=== PATIENT | female | born 1950 | race Caucasian/White ===

== ENCOUNTER → 2023-11-05 08:37 | Outpatient (REF) | payer MEDICARE, SELFPAY ==
[2023-11-05 09:26] LABS: % Basophils 0.9 % (0-2); % Eosinophils 2.6 % (0-6); % Immature Granulocytes 0.4 % (0-0.5); % Monocytes 9.3 % (1.7-9.3); % Neutrophils 41.8 % (42.2-75.2); Absolute Basophils 0.1 10^3/uL (0-0.2); Absolute Eosinophils 0.2 10^3/uL (0-0.7); Absolute Lymphocytes 2.6 10^3/uL (1.2-3.4); Absolute Monocytes 0.5 10^3/uL (0.1-0.6); Absolute Neutrophils 2.4 10^3/uL (1.4-6.5); Hematocrit 35.6 % (37.0-47.0); Mean Corp Hgb Conc. 33.7 g/dL (33.0-37.0); Mean Corpuscular Hgb 32.8 pg (27.0-31.0); Mean Corpuscular Volume 97.3 fL (81.0-99.0); Mean Platelet Volume 10.3 fL (7.4-10.4); Nucleated Red Blood Cells % 0 %; Platelet Count 170 10^3/uL (130-400); Red Blood Cell Count 3.66 10^6/uL (4.20-5.40); Red Cell Dist. Width 12.6 % (11.5-14.5); White Blood Cell Count 5.7 10^3/uL (4.8-10.8)
[2023-11-05 13:03] LABS: ALT (SGPT) 21 U/L (0-35); AST (SGOT) 28 U/L (14-36); Albumin 4.4 g/dl (3.5-5.0); Alkaline Phosphatase 109 U/L (38-126); Blood Urea Nitrogen 21 mg/dl (7-17); Calcium 9.4 mg/dl (8.4-10.2); Carbon Dioxide 29 mmol/L (22-30); Chloride 106 mmol/L (98-107); Glucose 79 mg/dl (70-99); Potassium 4.6 mmol/L (3.5-5.1); Sodium 140 mmol/L (135-145); Total Bilirubin 0.5 mg/dl (0.2-1.3); Total Protein 6.8 g/dl (6.3-8.2); eGFR > 60.00
== END ==
LOC: REG 08:37
PROVIDERS: ATTENDING PHYSICIAN Orthopaedic Surgery
DX: Z01.818 Encounter for other preprocedural examination (principal)
CPT/HCPCS: 36415; 80053; 85025

== ENCOUNTER 2023-11-27 16:45 | Observation (INO) | payer MEDICARE, SELFPAY ==
[2023-11-27 10:48] VITALS: BMI 28.3
[2023-11-27 10:50] VITALS: BP 126/68
[2023-11-27 11:25] LABS: % Basophils 0.6 % (0-2); % Eosinophils 1.1 % (0-6); % Immature Granulocytes 0.5 % (0-0.5); % Lymphocytes 24.9 % (20.5-51.1); % Monocytes 6.2 % (1.7-9.3); % Neutrophils 66.7 % (42.2-75.2); Absolute Basophils 0.1 10^3/uL (0-0.2); Absolute Eosinophils 0.1 10^3/uL (0-0.7); Absolute Immature Granulocytes 0.1 10^3/uL (0-0.05); Absolute Lymphocytes 2.5 10^3/uL (1.2-3.4); Absolute Monocytes 0.6 10^3/uL (0.1-0.6); Absolute Neutrophils 6.7 10^3/uL (1.4-6.5); Hematocrit 35.2 % (37.0-47.0); Hemoglobin 12.1 g/dL (12.0-16.0); Mean Corp Hgb Conc. 34.4 g/dL (33.0-37.0); Mean Corpuscular Hgb 32.2 pg (27.0-31.0); Mean Corpuscular Volume 93.6 fL (81.0-99.0); Mean Platelet Volume 9.9 fL (7.4-10.4); Nucleated Red Blood Cells % 0 %; Platelet Count 201 10^3/uL (130-400); Red Blood Cell Count 3.76 10^6/uL (4.20-5.40); Red Cell Dist. Width 12.4 % (11.5-14.5); White Blood Cell Count 10.1 10^3/uL (4.8-10.8)
[2023-11-27 11:26] LABS: ALT (SGPT) 22 U/L (0-35); AST (SGOT) 29 U/L (14-36); Albumin 4.1 g/dl (3.5-5.0); Alkaline Phosphatase 129 U/L (38-126); Blood Urea Nitrogen 22 mg/dl (7-17); Calcium 9.3 mg/dl (8.4-10.2); Carbon Dioxide 28 mmol/L (22-30); Chloride 104 mmol/L (98-107); Estimated Creatinine Clearance 47 ml/min; Glucose 105 mg/dl (70-99); Potassium 4.1 mmol/L (3.5-5.1); Sodium 140 mmol/L (135-145); Total Bilirubin 0.5 mg/dl (0.2-1.3); Total Protein 6.6 g/dl (6.3-8.2); eGFR 59.86
[2023-11-27 11:38] LABS: Troponin I < 0.012 ng/ml
[2023-11-27 12:05] VITALS: BP 104/74
[2023-11-27] MEDS: PROTONIX IV 80 MG IV (12:28)
--- NOTE | 2023-11-27 13:10 | HPS.HSE ---
Family Physician
-
Family Physician: Jorge Cowan
Chief Complaint
-
near syncope
History of Present Illness
73 female sick sinus syndrome status post pacemaker placement hypertension hyperlipidemia history of CVA/TIAs on aspirin 325 mg daily GERD IBS presents for evaluation near-syncope. First day returned to work after November 14 hammertoe surgery left foot
with podiatry, patient reports brief episode of diaphoresis lightheadedness near fainting while working causing her to sit down. Symptoms eventually resolved at rest denies headache chest pain palpitations fevers chills nausea vomiting diarrhea.
Reports for the past week or so she has had had poor appetite abdomen discomfort bloating belching and recently dark stools. First episode noted day prior to presentation. Most recent bowel movement morning was noted to be very dark 'black.'
Denies mati blood. Following surgery patient had been ibuprofen as needed for pain (unable to tolerate most opiate pain medications). Patient also endorses taking Pepto-Bismol for GERD- patient noted symptoms have been more frequent for the past
week. Vital signs stable no significant anemia labs unremarkable. CTA chest abdomen pelvis noted no aortic dissection embolism. Mild concentric mural wall thickening's of the colon extending from splenic flexure to sigmoid colon was noted
concerning for possible infectious versus inflammatory etiology.
Medical History
Past Medical History
Past Medical History: Reports Other (As above)
Past Surgical History: Reports Other (As above)
Social History
Tobacco: Non-smoker
Alcohol: Occasional
Drug: None
Personal: Other (Engaged)
Living: Other ([facility])
Employment: Employed
Family History
Family History: Not pertinent (Reviewed)
Allergies / Home Medications
Allergies reflects when Allergies were last updated in [facility] ([email or web address]).
Home Medications with original date entered in [facility] ([email or web address])
Allergy/Medication List:
Allergies
Allergy/AdvReac Type Severity Reaction Status Date / Time
cephalexin [From Keflex] Allergy Rash Verified 07/30/23 10:08
latex Allergy Rash Verified 07/30/23 10:08
metronidazole [From Flagyl] Allergy Rash Verified 07/30/23 10:08
oxycodone [From Percocet] Allergy Nausea / Verified 07/30/23 10:08
Vomiting
Sulfa (Sulfonamide Allergy Nausea / Verified 07/17/23 15:30
Antibiotics) Vomiting/RASH
Home Medications
omeprazole 40 mg capsule,delayed release 40 mg PO DAILY gerd 09/24/19
metoprolol succinate 25 mg tablet,extended release 24 hr 25 mg PO DAILY Arrhythmia 09/08/20
loratadine 10 mg tablet 10 mg PO DAILY allergies 11/23/20
atorvastatin 80 mg tablet 80 mg PO HS High cholesterol 01/25/21
lisinopril 40 mg tablet 40 mg PO BID Blood Pressure 02/12/23
multivitamin 1 tab PO DAILY Supplement 02/12/23
sertraline 50 mg tablet 50 mg PO DAILY Mental Health 07/17/23
rimegepant 75 mg disintegrating tablet (Nurtec ODT) 75 mg PO DAILYPRN PRN MIGRANES 07/30/23
aspirin 325 mg tablet 325 mg PO DAILY Blood Clot Prevention/Tx 11/27/23
bismuth subsalicylate 262 mg/15 mL oral suspension (Pepto-Bismol) 524 mg PO BIDPRN PRN GERD 11/27/23
ibuprofen 200 mg tablet (Advil) 400 mg PO BIDPRN PRN MILD PAIN 11/27/23
Review of Systems
-
A 12 point ROS was completed and negative except as noted: Yes
Constitutional: Reports Sleep Disturbance (As below)
Physical Exam
Vital Signs
Vital Signs
Temp Pulse Resp BP Pulse Ox
98.1 F 62 15 126/68 100
11/27/23 10:48 11/27/23 12:00 11/27/23 12:00 11/27/23 10:50 11/27/23 12:00
Physical Exam
General: Other (As below)
Laboratory Results
-
11/27/23 11:04
11/27/23 11:04
Laboratory Results
Total Bilirubin 0.5 mg/dl (0.2-1.3) 11/27/23 11:04
AST 29 U/L (14-36) 11/27/23 11:04
ALT 22 U/L (0-35) 11/27/23 11:04
Alkaline Phosphatase 129 U/L (38-126) H 11/27/23 11:04
Troponin I < 0.012 ng/ml 11/27/23 11:04
Impression/Plan
-
ROS
General: Denies fever chills night sweats unexpected weight loss
Neuro: Denies seizure shaking loss of consciousness dizziness vertigo
Psych: denies depression hallucinations confusion manic episodes
Endocrine: Denies polyuria polydipsia polyphagia heat/cold intolerance
HEENT: Denies blindness visual disturbances epistaxis
Pulmonary: denies coughing hemoptysis sneezing sob dyspnea on exertion
Cardiovascular: denies chest pain palpitations leg swelling
Hematology: denies signs symptoms of anemia easy bruising/bleeding
Gastrointestinal: Reports poor appetite for the past week abdomen discomfort bloating gas belching dark stools
Genito-Urinary: denies retention incontinence dysuria
Musculoskeletal: denies joint pain weakness
Dermatology: denies rash laceration bruising
Physical Exam
General: No pallor, cyanosis, or jaundice.
HEENT: Throat clear. PERRLA Normocephalic atraumatic
NECK: Supple. No JVD Carotid Bruits
RESPIRATORY: Lungs clear to auscultation. No crackles wheezes stridor
CVS: S1, S2 normal. RRR. No murmur, rub or gallop.
ABDOMEN: Soft, non-tender. No distension. BS+/normal.
EXTREMITIES: No peripheral cyanosis or edema.
TEENAGE BABYSITTER: AOx3
IMPRESSION:
73F sick sinus syndrome status post pacemaker placement hypertension hyperlipidemia history of CVA/TIAs on aspirin 325 mg daily GERD IBS/ulcerative colitis presents for evaluation near-syncope. First day returned to work after November 14 hammertoe
surgery left foot with podiatry, patient reports brief episode of diaphoresis lightheadedness near fainting while working causing her to sit down. Symptoms eventually resolved at rest denies headache chest pain palpitations fevers chills nausea
vomiting diarrhea. Reports for the past week or so she has had had poor appetite abdomen discomfort bloating belching and recently dark stools. First episode noted day prior to presentation. Most recent bowel movement morning was noted to be very
dark 'black.' Denies mati blood. Following surgery patient had been ibuprofen as needed for pain (unable to tolerate most opiate pain medications). Patient also endorses taking Pepto-Bismol for GERD- patient noted symptoms have been more
frequent for the past week. Vital signs stable no significant anemia labs unremarkable. CTA chest abdomen pelvis noted no aortic dissection embolism. Mild concentric mural wall thickening's of the colon extending from splenic flexure to sigmoid
colon was noted concerning for possible infectious versus inflammatory etiology.
PLAN:
#Near syncope likely vasovagal
Telemetry observation
Fall precautions
#Suspected NSAID induced peptic ulcer disease
#Possible upper GI bleed
#GERD IBS
No significant anemia noted at this time
Dark stools may be due to Pepto-Bismol use
Monitor H&H, transfuse goal hemoglobin greater than 8 or if patient develops symptomatic anemia
Hold further NSAID use except for home 325 mg daily aspirin due to history CVA/TIAs
Possible colon Inflammation noted on CT doubt infectious afebrile no leukocytosis, monitor off antibiotics at this time
IV Protonix twice daily
GI eval
#Hypertension
Continue home lisinopril metoprolol with holding parameters
#Seasonal allergies
Continue home loratadine
#Anxiety/depression
Continue home sertraline
#History of migraines
Continue home as needed Nurtec
DVT prophylaxis SCDs
GI prophylaxis Protonix
Meds reconciled resume as appropriate
Full code
I spent a total of 80 minutes with the patient or on the floor. More than 50% of this time involved counseling and coordination of care.
[2023-11-27 13:13] VITALS: BP 125/74
[2023-11-27 17:45] VITALS: BP 125/62; BMI 27.3
[2023-11-27 17:58] LABS: Hematocrit 34.8 % (37.0-47.0); Hemoglobin 11.8 g/dL (12.0-16.0)
[2023-11-27 19:57] VITALS: BP 104/62
[2023-11-27] MEDS: ZESTRIL PO (20:32)
[2023-11-27] MEDS: LIPITOR 80 MG PO (20:43)
[2023-11-27] MEDS: PROTONIX IV 40 MG IV (20:44)
[2023-11-27] MEDS: NSS (PRESERVATIVE FREE) 10 ML IV (20:44)
[2023-11-27 23:05] VITALS: BP 116/66
[2023-11-28] VITALS (11 sets, daily range): BP systolic 12–149; BP diastolic 54–80; PULSE 63–70; O2SAT 98; BMI 27.7
--- NOTE | 2023-11-28 06:44 | CON.GI ---
Addendum entered and electronically signed by Carlee Wang DO 11/28/23 09:08:
I saw and examined the patient.
The COMPUTER SYSTEMS SECURITY ANALYST or PA's note was reviewed and I agree with the note.
Comment: Briefly, Isaura is a 73 y.o. female with hx SSS s/p PPM, Hx CVA on ASA 325 mg, GERD, HTN, HLD, Hx colon polyps, hx of prior GI bleed, hx diverticulitis , who presents with weakness, lightheadedness and reports of dark tarry stool over the
last few weeks. She recently had hammertoe surgery on 11/14, reports daily NSAID use, also concurrent pepto bismol use. She is on daily omeprazole for GERD. Hemoglobin stable, however, elevated BUN. She is hemodynamically stable. CTA performed on
admission was negative for active GI Bleed or dissection, but does note inflammation in the sigmoid colon to splenic flecture. She does not have any lower abd. pain, hematochezia or complaints of diarrhea. Last colonoscopy 04/[address] Carter no
colitis, sigmoid nathalie diverticular inflammation at one location, diverticulosis ascending and sigmoid and nathalie diverticular inflammation. 2 polyps removed bx TA no colitis.
Unclear if dark stool is 2/2 pepto use, but given elevated BUN in setting of excessive NSAID use, will plan to further evaluate with EGD today. Not sure what to make of her colitis seen on imaging, without any lower GI symptoms. Distribution is
suggestive of ischemic picture vs. infectious vs. inflammatory. Would recommend repeat imaging in 4-6 weeks as an outpatient vs. nonurgent colonoscopy as outpatient.
Original Note:
Consultation
-
Date/Time Consultation Requested: 11/27/23 1730
Date/Time Consultation Performed: 11/28/23 0800
Requesting Provider: Kate Reagan MD
Performing Provider: NILE Clark
Reason for Consultation: GI bleed
Medical History
Chief Complaint / HPI
History of Present Illness:
Pt is a 73yo with hx sick sinus syndrome with pacer, prior atrial tach,TIA/CVA on daily ASA 325mg, mild MR, basal cell ca, GERD with chronic Omeprazole use, HTN, Hypercholesterolemia, IBS, colon polyps, prior GI bleed 2019, diverticulitis,flex bx
with ischemia at that time, prior overdose in 2022 with depression issues with onset of near syncope. Pt with recent hammertoe surgery 11/14 and noted feeling of diaphoresis and lightheadedness on return to work. Pt admits to recent poor
appetite, bloating, belching and black stools with pepto use. On admission noted with hbg 12.1 with BUN 22 and prior BUN of 21 on 11/05/23. Pt does admit to recent NSAID use post foot surgery taking Ibuprofen 400mg BID alternating with Tylenol
until several days ago. CTA on admission with no signs of dissection. Wall thickening of colon from splenic flexure to sigmoid infectious vs inflammatory etiology considered with small amount of free fluid. small HH, mild dilation of CBD up to 1
cm, diverticulosis and thinning and scarring of b/l kidney's.
Pt also admits to nausea with vomiting bile at some point. She admits to upper abdominal pain with symptoms but denies any lower abdominal pain. Stool normally regular but did have black formed stool Blank then tarry stools yesterday AM.
Hx EGD 7-8 years ago did not recall details. Last colonoscopy 04/[address] Carter no colitis, sigmoid nathalie diverticular inflammation at one location, diverticulosis ascending and sigmoid and nathalie diverticular inflammation. 2 polyps removed bx TA
no colitis.
Past Medical History
Past Medical History: Arrhythmias (sick sinus syndrome, atrial tach), Cancer (basal cell CA), CVA (TIA), GERD, HTN, Hypercholesterolemia, Valvular Disease (mild MR) and Other (IBS, colon polyp, extensive diverticulosis, rectal bleeding 2019 with
noted diverticulitis vs colitis with flex bx ischemia at that time, vertigo, migrains, osteo, chronic fatigue, thyroid cyst, righ ovarian mass with prior oophorectomy, suicidal ideation and attempted opioid/Tylenol overdose 08/2022)
Past Surgical History: Cardiac (pacer), Gynecological (b/l oophorectomy) and Other (cataract sx)
Social History
Tobacco: Non-Smoker
Alcohol: Occasional (1-2 drinks per month )
Drug: None
Personal: Other (casandra)
Living: Other ([place])
Employment: Employed
Family History
Family History: Other (father with lung CA with mets to colon)
Allergies / Home Medications
Allergy/AdvReac Type Severity Reaction Status Date / Time
cephalexin [From Keflex] Allergy Rash Verified 07/30/23 10:08
latex Allergy Rash Verified 07/30/23 10:08
metronidazole [From Flagyl] Allergy Rash Verified 07/30/23 10:08
oxycodone [From Percocet] Allergy Nausea / Verified 07/30/23 10:08
Vomiting
Sulfa (Sulfonamide Allergy Nausea / Verified 07/17/23 15:30
Antibiotics) Vomiting/RASH
�Medication �Instructions �Recorded
omeprazole 40 mg capsule,delayed 40 mg PO DAILY gerd 09/24/19
release
metoprolol succinate 25 mg 25 mg PO DAILY Arrhythmia 09/08/20
tablet,extended release 24 hr
loratadine 10 mg tablet 10 mg PO DAILY allergies 11/23/20
atorvastatin 80 mg tablet 80 mg PO HS High cholesterol 01/25/21
lisinopril 40 mg tablet 40 mg PO BID Blood Pressure 02/12/23
multivitamin 1 tab PO DAILY Supplement 02/12/23
sertraline 50 mg tablet 50 mg PO DAILY Mental Health 07/17/23
rimegepant 75 mg disintegrating 75 mg PO DAILYPRN PRN MIGRANES 07/30/23
tablet (Nurtec ODT)
aspirin 325 mg tablet 325 mg PO DAILY Blood Clot 11/27/23
Prevention/Tx
bismuth subsalicylate 262 mg/15 mL 524 mg PO BIDPRN PRN GERD 11/27/23
oral suspension (Pepto-Bismol)
ibuprofen 200 mg tablet (Advil) 400 mg PO BIDPRN PRN MILD PAIN 11/27/23
Review of Systems
-
History Source: Patient
Constitutional: Reports Other (sweats )
EENT: Reports No Symptoms
Cardiac: Reports Other (near syncope)
Abdomen/GI: Reports Abdominal Pain, Nausea, Vomiting (bilious material ) and Black Stools (formed then tarry stools)
: Reports No Symptoms
Musculoskeletal: Reports Other (recent foot pain with surgery )
Skin: Reports No Symptoms
Neurological: Reports Dizzy
Endocrine: Reports No Symptoms
Hematologic/Lymphatic: Reports Bleeding (black stools)
Vital Signs
Temp Pulse Resp BP Pulse Ox
97.9 F 74 18 93/54 98
11/28/23 03:33 11/28/23 03:33 11/28/23 03:33 11/28/23 03:33 11/28/23 03:33
Physical Exam
Exam
General: Well Developed, Well Nourished and No Apparent Distress
Results
WBC 10.1 10^3/uL (4.8-10.8) 11/27/23 11:04
Hgb 11.8 g/dL (12.0-16.0) L 11/27/23 17:54
Hct 34.8 % (37.0-47.0) L 11/27/23 17:54
MCV 93.6 fL (81.0-99.0) 11/27/23 11:04
Plt Count 201 10^3/uL (130-400) 11/27/23 11:04
Absolute Neuts (auto) 6.7 10^3/uL (1.4-6.5) H 11/27/23 11:04
Sodium 140 mmol/L (135-145) 11/27/23 11:04
Potassium 4.1 mmol/L (3.5-5.1) 11/27/23 11:04
Chloride 104 mmol/L (98-107) 11/27/23 11:04
Carbon Dioxide 28 mmol/L (22-30) 11/27/23 11:04
BUN 22 mg/dl (7-17) H 11/27/23 11:04
Creatinine 1.0 mg/dL (0.6-1.0) 11/27/23 11:04
Calcium 9.3 mg/dl (8.4-10.2) 11/27/23 11:04
Total Bilirubin 0.5 mg/dl (0.2-1.3) 11/27/23 11:04
AST 29 U/L (14-36) 11/27/23 11:04
ALT 22 U/L (0-35) 11/27/23 11:04
Alkaline Phosphatase 129 U/L (38-126) H 11/27/23 11:04
Diagnostic Image Results:
11/27/23 CT Chest/abd/pelvis Angio W/wo
1. No signs of aortic dissection. No acute vascular abnormality is identified. No central or segmental pulmonary embolus.
2. Mild concentric mural wall thickening of the colon extending from the splenic flexure through the sigmoid colon. Infectious and inflammatory etiologies are the most likely differential considerations. Very small amount of associated free fluid
within the pelvis. There are no signs of significant mesenteric atherosclerotic changes.
3. Very small hiatal hernia.
4. Mild dilation common bile duct, indeterminate etiology. No abnormal focal pancreatic lesions identified.
5. Mild cortical thinning and minimal scarring bilateral kidneys.
6. Colonic diverticulosis.
04/2020 CT Abd/pelvis W Iv Cont
Persistent mild diverticulitis of the distal descending colon, improved since the previous exam 3 weeks ago. There is mild distal descending colon wall thickening in this region. Resolution of the previous free fluid. No abscess. Overall improved
appearance.
There is moderate stool in the transverse and descending colon, consistent with constipation.
Remainder of the exam is unchanged. Unremarkable.
Prior GI Procedures:
EGD:
flex: 02/2020 [facility] - Blood in the entire examined colon.
- The rectum and sigmoid colon are normal.
- Hemorrhagic, inflamed and ulcerated mucosa in the
descending colon (looks like ischemia) Biopsied.
- Stopped here, did not view past the descending colon.
bx finding with ischemia differential c-diff
Colonoscopy: 05/24/2020 [facility] No colitis other than a sigmoid nathalie-diverticular
inflammation at one location. No strictures or colitis
otherwise seen.
- Diverticulosis in the ascending colon and in the
left colon.
- Diverticulosis in the sigmoid colon.
Nathalie-diverticular erythema was seen. Biopsied.
- Two small polyps in the ascending colon and in the
cecum, removed with a jumbo cold forceps. Resected and
retrieved.
- The examined portion of the ileum was normal.
bx TA polyps, no colitis
Assessment / Plan
-
Pt is a 73yo with hx sick sinus syndrome with pacer, prior atrial tach,TIA/CVA on daily ASA 325mg, mild MR, basal cell ca, GERD with chronic Omeprazole use, HTN, Hypercholesterolemia, IBS, colon polyps, prior GI bleed 2019, diverticulitis,flex bx
with ischemia at that time, prior overdose in 2022 with depression issues with onset of near syncope. Pt with recent hammertoe surgery 11/14 and noted feeling of diaphoresis and lightheadedness on return to work. Pt admits to recent poor
appetite, bloating, belching and black stools with pepto use. On admission noted with hbg 12.1 with BUN 22 and prior BUN of 21 on 11/05/23. Pt does admit to recent NSAID use post foot surgery taking Ibuprofen 400mg BID alternating with Tylenol
until several days ago. CTA on admission with no signs of dissection. Wall thickening of colon from splenic flexure to sigmoid infectious vs inflammatory etiology considered with small amount of free fluid. small HH, mild dilation of CBD up to 1
cm, diverticulosis and thinning and scarring of b/l kidney's.
-near syncope
-black stools - pepto vs concern for GI bleed
-CT with colonic thickening splenic flexure to sigmoid
-mild anemia
-TIA/CVA on daily ASA 325mg
-chronic alk phos elevated
other medical problems:
-GI bleed 2019 with noted diverticulitis and ischemia on bx at that time
-SSS with pacer
-atrial tach
-mild MR
-basal cell CA
-GERD
-HTN
-hypercholesterolemia
-IBS
-colon polyps
-prior overdose/depression stable at this time
PLAN:
etiology of symptoms related to upper GI bleed with recent surgery and increased NSAID use -- PUD vs pepto use vs other
trend hbg
plan for EGD today to rule out PUD
PPI BID
NPO
NSAID avoidance other than cont ASA as needed with hx CVA
cont PPI
CT as noted with colonic thickening-- similar CT finding in past with prior stable colon no current lower symptoms less likely current colitis or diverticular process
-
-
Thank you for consultation and allowing me to participate in the patient's care. Please call the manager contracting GI physician during the after hours with any questions or concerns.
--- NOTE | 2023-11-28 07:16 | W.PN.HOSP.TC ---
Today's Communication/Plan
-
reduced dose lisinopril.
antihypertensives with holding parameters
diet as per GI
monitor H&H
likely discharge tomorrow if remains stable/continues to improve
Assessment / Plan
Assessment / Plan
Physical Exam
General: No pallor, cyanosis, or jaundice.
HEENT: Throat clear. PERRLA Normocephalic atraumatic
NECK: Supple. No JVD Carotid Bruits
RESPIRATORY: Lungs clear to auscultation. No crackles wheezes stridor
CVS: S1, S2 normal. RRR. No murmur, rub or gallop.
ABDOMEN: Soft, non-tender. No distension. BS+/normal.
EXTREMITIES: No peripheral cyanosis or edema.
WARD MAID: AOx3
IMPRESSION:
73F sick sinus syndrome status post pacemaker placement hypertension hyperlipidemia history of CVA/TIAs on aspirin 325 mg daily GERD IBS/ulcerative colitis presents for evaluation near-syncope. First day returned to work after November 14 hammpablitoe
surgery left foot with podiatry, patient reports brief episode of diaphoresis lightheadedness near fainting while working causing her to sit down. Symptoms eventually resolved at rest denies headache chest pain palpitations fevers chills nausea
vomiting diarrhea. Reports for the past week or so she has had had poor appetite abdomen discomfort bloating belching and recently dark stools. First episode noted day prior to presentation. Most recent bowel movement morning was noted to be very
dark 'black.' Denies mati blood. Following surgery patient had been ibuprofen as needed for pain (unable to tolerate most opiate pain medications). Patient also endorses taking Pepto-Bismol for GERD- patient noted symptoms have been more
frequent for the past week. Vital signs stable no significant anemia labs unremarkable. CTA chest abdomen pelvis noted no aortic dissection embolism. Mild concentric mural wall thickening's of the colon extending from splenic flexure to sigmoid
colon was noted concerning for possible infectious versus inflammatory etiology.
PLAN:
#Near syncope likely vasovagal
Telemetry observation
Fall precautions
PT/OT appreciated no needs
#Suspected NSAID induced peptic ulcer disease
#Possible upper GI bleed
#GERD IBS
No significant anemia noted at this time
Dark stools may be due to Pepto-Bismol use
Monitor H&H, transfuse goal hemoglobin greater than 8 or if patient develops symptomatic anemia
Hold further NSAID use except for home 325 mg daily aspirin due to history CVA/TIAs
Possible colon Inflammation noted on CT doubt infectious afebrile no leukocytosis, monitor off antibiotics at this time
IV Protonix twice daily
GI eval appreciated
EGD 11/27
-mild erosive gastritis, duodenitis
-outpt follow up recommended, avoid NSAIDs, PPI once daily outpt.
#Hypertension
Continue home lisinopril metoprolol with holding parameters
Lisinopril dose reduced from 40 mg to 20 mg BID d/t relative hypotension potentially causing lightheadedness
#Seasonal allergies
Continue home loratadine
#Anxiety/depression
Continue home sertraline
#History of migraines
Continue home as needed Nurtec
DVT prophylaxis SCDs
GI prophylaxis Protonix
Full code
I spent a total of 59 minutes with the patient or on the floor. More than 50% of this time involved counseling and coordination of care.
Anticipated Discharge: Within 24 hours
Subjective/Interval History
-
Date of Service: November 28, 2023
Seen and examined at bedside in no acute distress resting comfortably in bed. Reports overall feeling well at rest. No bowel movements since admission. Denies new acute issues at this time.
Objective Data
-
Labs:
Laboratory Results
11/28/23
06:00
WBC Pending
Hgb Pending
Hct Pending
Plt Count Pending
Sodium Pending
Potassium Pending
Chloride Pending
Carbon Dioxide Pending
BUN Pending
Creatinine Pending
Glucose Pending
Calcium Pending
Vital Signs:
Vital Signs
Temp Pulse Resp BP Pulse Ox
97.9 F 74 18 93/54 98
11/28/23 03:33 11/28/23 03:33 11/28/23 03:33 11/28/23 03:33 11/28/23 03:33
I&O
11/27/23 11/28/23 11/29/23
06:59 06:59 06:59
Intake Total 120 / 120
Balance 120 / 120
[2023-11-28 07:50] LABS: Hematocrit 34.2 % (37.0-47.0); Hemoglobin 11.5 g/dL (12.0-16.0); Mean Corp Hgb Conc. 33.6 g/dL (33.0-37.0); Mean Corpuscular Hgb 32.2 pg (27.0-31.0); Mean Corpuscular Volume 95.8 fL (81.0-99.0); Mean Platelet Volume 10.2 fL (7.4-10.4); Platelet Count 180 10^3/uL (130-400); Red Blood Cell Count 3.57 10^6/uL (4.20-5.40); Red Cell Dist. Width 12.7 % (11.5-14.5); White Blood Cell Count 6.2 10^3/uL (4.8-10.8)
[2023-11-28] MEDS: ZOLOFT 50 MG PO (08:08)
[2023-11-28] MEDS: THERAGRAN 1 TABLET PO (08:08)
[2023-11-28] MEDS: ZESTRIL 40 MG PO (08:08)
[2023-11-28] MEDS: TOPROL XL 25 MG PO (08:08)
[2023-11-28] MEDS: CLARITIN 10 MG PO (08:08)
[2023-11-28] MEDS: ASPIRIN 325 MG PO (08:08)
[2023-11-28] MEDS: PROTONIX IV 40 MG IV ×2 (08:09→19:54)
[2023-11-28] MEDS: NSS (PRESERVATIVE FREE) 10 ML IV ×2 (08:09→19:54)
[2023-11-28 08:37] LABS: Blood Urea Nitrogen 20 mg/dl (7-17); Calcium 9.2 mg/dl (8.4-10.2); Carbon Dioxide 27 mmol/L (22-30); Chloride 107 mmol/L (98-107); Estimated Creatinine Clearance 51 ml/min; Glucose 92 mg/dl (70-99); Magnesium 2.1 mg/dl (1.6-2.3); Potassium 4.5 mmol/L (3.5-5.1); Sodium 141 mmol/L (135-145); eGFR > 60.00
--- NOTE | 2023-11-28 11:16 | CM ---
Patient seen bedside, initial assessment completed. Patient resides with her fiance who is a physical therapist in a two story home, one small step to enter. Patient denies DME, reports VN and Acute Rehab in the past (2016/2017) after strokes,
unsure name of facility. Patient confirms PCP Jorge Cowan, pharmacy [facility], denies prescription coverage. WEL[employer] form reviewed, signed, placed in chart, patient provided with copy. CM will continue to follow for discharge planning needs.
Plan; home no needs anticipated.
--- NOTE | 2023-11-28 12:44 | W.PN.UPDATE ---
Update Note
Progress Note Update
EGD;
mild erosive gastritis, duodenitis
stomach biopsied
plan;
avoid nsaids
regular diet
PPI once a day as outpatient
f/u with Dr. Carter
will sign off call with questions
--- NOTE | 2023-11-28 15:29 | PTOTSP ---
pt currently requires supervision to no assistance to complete simple ADLs, functional transfers, ambulation. pt demonstrates no acute OT needs; will sign off.
[2023-11-28] MEDS: ZESTRIL 20 MG PO (19:55)
[2023-11-28] MEDS: LIPITOR 80 MG PO (21:15)
[2023-11-29 03:00] VITALS: BP 110/64
[2023-11-29 03:44] VITALS: BMI 27.5
[2023-11-29 06:28] LABS: Hemoglobin 10.8 g/dL (12.0-16.0); Mean Corp Hgb Conc. 33.8 g/dL (33.0-37.0); Mean Corpuscular Volume 94.7 fL (81.0-99.0); Mean Platelet Volume 9.9 fL (7.4-10.4); Platelet Count 177 10^3/uL (130-400); Red Blood Cell Count 3.38 10^6/uL (4.20-5.40); Red Cell Dist. Width 12.6 % (11.5-14.5); White Blood Cell Count 8.3 10^3/uL (4.8-10.8)
[2023-11-29 06:53] LABS: Blood Urea Nitrogen 26 mg/dl (7-17); Calcium 9.2 mg/dl (8.4-10.2); Carbon Dioxide 26 mmol/L (22-30); Chloride 106 mmol/L (98-107); Estimated Creatinine Clearance 51 ml/min; Glucose 99 mg/dl (70-99); Phosphorus 4.3 mg/dl (2.5-4.5); Potassium 4.5 mmol/L (3.5-5.1); Sodium 141 mmol/L (135-145); eGFR > 60.00
--- NOTE | 2023-11-29 07:19 | W.PN.HOSP.TC ---
Today's Communication/Plan
-
discharge
Assessment / Plan
Assessment / Plan
Physical Exam
General: No pallor, cyanosis, or jaundice.
HEENT: Throat clear. PERRLA Normocephalic atraumatic
NECK: Supple. No JVD Carotid Bruits
RESPIRATORY: Lungs clear to auscultation. No crackles wheezes stridor
CVS: S1, S2 normal. RRR. No murmur, rub or gallop.
ABDOMEN: Soft, non-tender. No distension. BS+/normal.
EXTREMITIES: No peripheral cyanosis or edema.
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
IMPRESSION:
73F sick sinus syndrome status post pacemaker placement hypertension hyperlipidemia history of CVA/TIAs on aspirin 325 mg daily GERD IBS/ulcerative colitis presents for evaluation near-syncope. First day returned to work after November 14 teresa
surgery left foot with podiatry, patient reports brief episode of diaphoresis lightheadedness near fainting while working causing her to sit down. Symptoms eventually resolved at rest denies headache chest pain palpitations fevers chills nausea
vomiting diarrhea. Reports for the past week or so she has had had poor appetite abdomen discomfort bloating belching and recently dark stools. First episode noted day prior to presentation. Most recent bowel movement morning was noted to be very
dark 'black.' Denies mati blood. Following surgery patient had been ibuprofen as needed for pain (unable to tolerate most opiate pain medications). Patient also endorses taking Pepto-Bismol for GERD- patient noted symptoms have been more
frequent for the past week. Vital signs stable no significant anemia labs unremarkable. CTA chest abdomen pelvis noted no aortic dissection embolism. Mild concentric mural wall thickening's of the colon extending from splenic flexure to sigmoid
colon was noted concerning for possible infectious versus inflammatory etiology.
PLAN:
#Near syncope likely vasovagal
Telemetry observation
Fall precautions
PT/OT appreciated no needs
#Suspected NSAID induced peptic ulcer disease
#Possible upper GI bleed
#GERD IBS
No significant anemia noted at this time
Dark stools may be due to Pepto-Bismol use
Monitor H&H, transfuse goal hemoglobin greater than 8 or if patient develops symptomatic anemia
Hold further NSAID use except for home 325 mg daily aspirin due to history CVA/TIAs
Possible colon Inflammation noted on CT doubt infectious afebrile no leukocytosis, monitor off antibiotics at this time
IV Protonix twice daily
GI eval appreciated
EGD 11/27
-mild erosive gastritis, duodenitis
-outpt follow up recommended, avoid NSAIDs, PPI once daily outpt.
#Hypertension
Continue home lisinopril metoprolol with holding parameters
Lisinopril dose reduced from 40 mg to 20 mg BID d/t relative hypotension potentially causing lightheadedness
blood pressure well controlled, tolerating change in medication well
#Seasonal allergies
Continue home loratadine
#Anxiety/depression
Continue home sertraline
#History of migraines
Continue home as needed Nurtec
DVT prophylaxis SCDs
GI prophylaxis Protonix
Full code
Medically stable for discharge home with outpatient follow up recommendations.
Total Time Preparing Discharge __50 minutes including examination of the patient, summary of the hospital stay, instructions for continuing care to all relevant caregivers; and preparation of discharge records, prescriptions, and referral
forms if necessary.
Anticipated Discharge: Today
Subjective/Interval History
-
Date of Service: November 29, 2023
Seen and examined at bedside in no acute distress resting comfortably in bed. Patient reports overall feeling well. Denies any new acute issues at this time. Eager to go home.
Objective Data
-
Labs:
Laboratory Results
11/29/23
06:03
WBC 8.3
Hgb 10.8 L
Hct 32.0 L
Plt Count 177
Sodium 141
Potassium 4.5
Chloride 106
Carbon Dioxide 26
BUN 26 H
Creatinine 0.9
Glucose 99
Calcium 9.2
Vital Signs:
Vital Signs
Temp Pulse Resp BP Pulse Ox
98.4 F 79 16 110/64 97
11/29/23 03:00 11/29/23 03:00 11/29/23 03:00 11/29/23 03:00 11/29/23 03:00
I&O
11/28/23 11/29/23 11/30/23
06:59 06:59 06:59
Intake Total 120 / 120 960 / 960
Balance 120 / 120 960 / 960
[2023-11-29] MEDS: THERAGRAN 1 TABLET PO (07:53)
[2023-11-29] MEDS: CLARITIN 10 MG PO (07:54)
[2023-11-29] MEDS: TOPROL XL 25 MG PO (07:54)
[2023-11-29] MEDS: NSS (PRESERVATIVE FREE) 10 ML IV (07:56)
[2023-11-29] MEDS: ASPIRIN 325 MG PO (07:56)
[2023-11-29] MEDS: PROTONIX IV 40 MG IV (07:57)
[2023-11-29] MEDS: ZESTRIL 20 MG PO (07:58)
[2023-11-29] MEDS: ZOLOFT 50 MG PO (07:59)
[2023-11-29 08:04] VITALS: BP 115/68
[2023-11-29 08:31] LABS: Total Iron Binding Capacity 230 ug/dl (265-497)
[2023-11-29 09:07] LABS: Folate 14.1 ng/ml (2.76-20); Vitamin B12 325 pg/ml (239-931)
[2023-11-29 10:00] LABS: Hematocrit 32.8 % (37.0-47.0); Hemoglobin 10.9 g/dL (12.0-16.0)
--- NOTE | 2023-11-29 11:05 | CM ---
Patient seen bedside, reports no needs to CM at this time. CM will continue to follow for all discharge planning needs.
Plan; home no needs when stable.
[2023-11-29 11:26] VITALS: BP 114/59
[2023-11-29 13:56] LABS: Iron 76 ug/dl (37-170); Percent Saturation 33 % (20-50)
--- NOTE | 2023-11-29 14:56 | W.DCSUMMARY ---
Discharge Summary
Discharge Data
Date of Admission: 11/27/23
Date of Discharge: 11/29/23
-
Pending Results: Yes
Additional Pending Results:
biopsy results from endoscopy to be followed up with GI
Hospital Course
73F sick sinus syndrome status post pacemaker placement hypertension hyperlipidemia history of CVA/TIAs on aspirin 325 mg daily GERD IBS/ulcerative colitis presents for evaluation near-syncope. First day returned to work after November 14 hammertoe
surgery left foot with podiatry, patient reported brief episode of diaphoresis lightheadedness near fainting while working causing her to sit down. Symptoms eventually resolved at rest denied headache chest pain palpitations fevers chills nausea
vomiting diarrhea. Reported for the past week or so she has had poor appetite abdomen discomfort bloating belching and recently dark stools. First episode noted day prior to presentation. Most recent bowel movement morning was noted to be very
dark 'black.' Denies mati blood. Following surgery patient had been on ibuprofen as needed for pain (unable to tolerate most opiate pain medications). Patient also endorsed taking Pepto-Bismol for GERD- patient noted symptoms have been more
frequent for the past week. Vital signs stable no significant anemia labs unremarkable. CTA chest abdomen pelvis noted no aortic dissection embolism. Mild concentric mural wall thickening's of the colon extending from splenic flexure to sigmoid
colon was noted concerning for possible infectious versus inflammatory etiology. Near syncope likely vasovagal, PT/OT appreciated no skilled needs on discharge. Suspected NSAID induced peptic ulcer disease, possible upper GI bleed ruled out. Dark
stools possibly due to Pepto-Bismol use. Held further NSAID use except for home 325 mg daily aspirin due to history CVA/TIAs. Possible colon Inflammation noted on CT doubt infectious afebrile no leukocytosis, monitored off antibiotics, follow up
with GI recommended. GI evaluated and performed EGD 11/27, noted mild erosive gastritis, duodenitis.
Outpt follow up recommended, avoid NSAIDs, PPI once daily outpt. Regarding hypertension, home Lisinopril dose was reduced from 40 mg to 20 mg BID d/t relative hypotension potentially causing lightheadedness. Blood pressure well controlled, pt
tolerated change in medication well. Medically stable, patient was discharged home with outpatient follow up recommendations.
Discharge Plan
-
Patient Disposition: Home (Routine Discharge)
Discharge Diagnosis/Procedures: Near syncope likely vasovagal
Mild Erosive Gastritis Duodenitis likely exacerbated by NSAID use
Possible upper GI bleed ruled out
Hypertension
Seasonal allergies
Anxiety/depression
History of migraines
Mild Anemia
Condition: Fair
Diet: Regular
Activity: As tolerated
Driving Restrictions: As prior to admission
Bathing Restrictions: None
Blood Work: Please repeat CBC with primary care provider in 1 week of discharge.
Activity Restrictions/Additional Instructions:
Please follow up with primary care provider in 1 week of discharge and GI in 2-4 weeks of discharge.
Lisinopril has been reduced from 40 mg to 20 mg BID in order to reduce risk iatrogenic hypotension/lightheadedness/syncope/near syncope.
Except for home aspirin 325 mg daily for history multiple strokes and TIA's, avoid further NSAID use such as ibuprofen as it will likely exacerbate esophagitis/gastritis as noted in endoscopy.
Please take medications as prescribed/recommended and follow up with primary care provider and/or other healthcare provider involved in your care for refills and/or further adjustment to your medication regimen as necessary.
Referrals:
Jorge Cowan PA-C [Family Provider] - in one week
Sabrina Carter DO [Active] - in two to four weeks
Prescriptions:
New
lisinopril 20 mg Tablet
20 mg PO BID 30 Days Qty: 60 0RF
Continued
omeprazole 40 MG capsule,delayed release(DR/EC)
40 mg PO DAILY
metoprolol succinate 25 MG tablet extended release 24 hr
25 mg PO DAILY
loratadine 10 MG tablet
10 mg PO DAILY
atorvastatin 80 MG tablet
80 mg PO HS
multivitamin Tablet
1 tab PO DAILY
sertraline 50 mg Tablet
50 mg PO DAILY
Nurtec ODT 75 mg Tablet,Disintegrating
75 mg PO DAILYPRN PRN (Reason: MIGRANES)
aspirin 325 mg Tablet
325 mg PO DAILY
bismuth subsalicylate [Pepto-Bismol] 262 mg/15 mL Suspension
524 mg PO BIDPRN PRN (Reason: GERD)
Discontinued
lisinopril 40 mg tablet
40 mg PO BID
ibuprofen [Advil] 200 mg Tablet
400 mg PO BIDPRN PRN (Reason: MILD PAIN)
Discharge Orders:
Discharge Patient (As Directed); Ordered 11/29/23
Ordered By: Guillermo Reagan
Discharge Date and Time
Discharge Date/Time: 11/29/23 15:24
Print Language: SENEGALESE
--- NOTE | 2023-11-29 15:18 | PTCARENOTE ---
Pt DC'd to home. Pt given DC instructions and verbalized understanding. Pt escorted by staff to exit.
== END 2023-11-29 15:24 | disposition home or self-care (01) ==
LOC: 4 WEST ACU 16:45
PROVIDERS: Nurse Practitioner Adult Health; ADMITTING PHYSICIAN Internal Medicine; EMERGENCY PHYSICIAN Emergency Medicine; FAMILY PHYSICIAN Physician Assistant Medical; OTHER PHYSICIAN Internal Medicine
DX: R55 Syncope and collapse (principal); K29.60 Other gastritis without bleeding; K29.80 Duodenitis without bleeding; I10 Essential (primary) hypertension; K21.9 Gastro-esophageal reflux disease without esophagitis; D64.9 Anemia, unspecified; K58.9 Irritable bowel syndrome, unspecified; K44.9 Diaphragmatic hernia without obstruction or gangrene; K57.30 Diverticulosis of large intestine without perforation or abscess without bleeding; K22.2 Esophageal obstruction; F41.9 Anxiety disorder, unspecified; F32.A Depression, unspecified; E78.00 Pure hypercholesterolemia, unspecified; Z88.2 Allergy status to sulfonamides; Z88.5 Allergy status to narcotic agent; Z95.0 Presence of cardiac pacemaker; Z88.8 Allergy status to other drugs, medicaments and biological substances; Z88.1 Allergy status to other antibiotic agents; Z91.040 Latex allergy status; Z86.010 Personal history of colon polyps; Z86.73 Personal history of transient ischemic attack (TIA), and cerebral infarction without residual deficits; Z87.19 Personal history of other diseases of the digestive system; Z85.828 Personal history of other malignant neoplasm of skin; Z80.1 Family history of malignant neoplasm of trachea, bronchus and lung
CPT/HCPCS: 43239; 88305; 71275; 74174; 80048; 80053; 82607; 82746; 83540; 83550; 83735; 84100; 84484; 85014; 85018; 85025; 85027; 86850; 86900; 86901; 88342; 93005; 96374; 97162; 97165; 99285; G0378; Q9967

== ENCOUNTER 2024-03-11 15:39 | Emergency (ER) | payer MEDICARE, SELFPAY ==
[2024-03-11 15:50] VITALS: BP 203/115
--- NOTE | 2024-03-11 15:52 | ED.PDOC.TRB ---
ED Provider Triage
-
Patient seen by provider in Triage?: Seen in Triage
A medical screening examination has been initiated by a qualified medical provider. Based on the assessment performed at this time, it has been determined that an emergent medical condition may exist and the patient has been informed that further
medical evaluation and possible additional diagnostic testing may be needed.
HPI: This is a medical evaluation conducted in person to initiate diagnostic evaluation and provide initial therapeutics. Please see further documentation by the treating clinician.
GENERAL: Alert ,tearful
EYE: No visual abnormalities.
NECK: Trachea midline
ENT: No visible abnormalities.
LUNGS: No acute respiratory distress
NEUROLOGICAL: Alert and oriented
SKIN: no visible lesions.
MUSCULOSKELETAL: Moving extremities normally
PSYCH: Normal and appropriate interaction.
73-year-old female presenting for generalized weakness fatigue difficulty tolerating by mouth over the past 10 days. Diagnosed with COVID 10 days ago was initially on Paxlovid. She believes she may have developed nausea diarrhea from this. She
has had significant cough and. She feels very weak and tired at this point. Denies any specific chest pain shortness of breath no focal abdominal pain. Labs and symptomatic medications ordered.
[2024-03-11] MEDS: ZOFRAN 4 MG IV (16:07)
[2024-03-11] MEDS: NSS 1000 IV (16:08)
[2024-03-11] MEDS: PEPCID 20 MG IV (16:08)
[2024-03-11 16:18] LABS: % Basophils 0.5 % (0-2); % Eosinophils 1.7 % (0-6); % Immature Granulocytes 0.4 % (0-0.5); % Lymphocytes 43.4 % (20.5-51.1); % Monocytes 6.7 % (1.7-9.3); % Neutrophils 47.3 % (42.2-75.2); Absolute Eosinophils 0.1 10^3/uL (0-0.7); Absolute Lymphocytes 3.2 10^3/uL (1.2-3.4); Absolute Monocytes 0.5 10^3/uL (0.1-0.6); Absolute Neutrophils 3.5 10^3/uL (1.4-6.5); Hematocrit 38.6 % (37.0-47.0); Hemoglobin 13.4 g/dL (12.0-16.0); Mean Corp Hgb Conc. 34.7 g/dL (33.0-37.0); Mean Corpuscular Hgb 32.1 pg (27.0-31.0); Mean Corpuscular Volume 92.6 fL (81.0-99.0); Mean Platelet Volume 9.8 fL (7.4-10.4); Nucleated Red Blood Cells % 0 %; Platelet Count 221 10^3/uL (130-400); Red Blood Cell Count 4.17 10^6/uL (4.20-5.40); Red Cell Dist. Width 12.1 % (11.5-14.5); White Blood Cell Count 7.5 10^3/uL (4.8-10.8)
[2024-03-11 16:36] LABS: ALT (SGPT) 26 U/L (0-35); AST (SGOT) 32 U/L (14-36); Albumin 4.7 g/dl (3.5-5.0); Alkaline Phosphatase 150 U/L (38-126); Blood Urea Nitrogen 13 mg/dl (7-17); Calcium 9.9 mg/dl (8.4-10.2); Carbon Dioxide 23 mmol/L (22-30); Chloride 104 mmol/L (98-107); Glucose 104 mg/dl (70-99); Lipase 185 U/L (23-300); Potassium 4.4 mmol/L (3.5-5.1); Sodium 141 mmol/L (135-145); Total Bilirubin 0.6 mg/dl (0.2-1.3); Total Protein 7.2 g/dl (6.3-8.2); eGFR > 60.00
--- NOTE | 2024-03-11 17:32 | ED.GENMED ---
History of Present Illness
General
Chief Complaint: Abdominal Symptoms
Source: patient
Exam Limitations: none
Time Seen by Provider: 03/11/24 16:04
Nursing documentation reviewed up to this point in time: agreed with
History of Present Illness
History of Present Illness:
Patient is a 73-year-old female who presents here for evaluation. She had COVID 8 days ago and did take Paxlovid .after taking the second dose she started with diarrhea and vomiting. She has since stopped the Paxlovid but she has had off-and-on
diarrhea and nausea. She had diarrhea yesterday. No diarrhea today. She is nauseous however and cannot eat. She feels weak.
She denies any present fever chills shortness of breath cough. She denies any abdominal pain..
Past History
Past History
ED Past Medical History: Arrthythmia (HB), CVA (2013, 2016, twice in 2017, November 2020), GERD, HTN, Hypercholesterolemia and Other (Ulcerative colitis-no biologics, IBS, Cat scratch fever)
ED Past Surgical History: Appendectomy, Cardiac (pacer for bradycardia=30), Gynecological and Orthopedic
Social History
Tobacco: Non-smoker
Alcohol: Occasional
Drug: None
Personal:
Living: with family
Employment: Not employed
Family History
Family History: Other (stroke in distantly related family members)
Review of Systems
Review of Systems
Allergies reviewed?: Yes
All Other Systems: ROS reviewed and negative except as documented in HPI and ROS
Constitutional: Reports fatigue; Denies fever or chills
EENT: Reports no symptoms
Respiratory: Reports no symptoms
ABD/GI: Reports nausea and vomiting; Denies abdominal pain
: Reports no symptoms
Musculoskeletal: Reports no symptoms
Skin: Reports no symptoms
Neurological: Reports no symptoms
Psychiatric: Reports no symptoms
Phy Exam
General Physical Exam
General Presentation: no apparent distress
General age: appears stated age
General Skin: warm and dry
General Habitus: normal
General Mental: alert
General Hydration: appears well hydrated
Cardiovascular Exam
Cardiovascular Exam: regular rate/rhythm, no murmur and normal peripheral pulses
Pulmonary Exam
Pulmonary Exam: lungs clear and no respiratory distress
Gastrointestinal Exam
Gastrointestinal Exam: non tender and soft
Neurological Exam
Neurological Exam: alert and oriented x3
Musculoskeletal Exam
Musculoskeletal Exam: full ROM
Skin Exam
Skin Exam: normal color and warm/dry
Course
Orders/Labs/Results
Orders:
Orders
03/11/24 15:51
Electrocardiogram (*1) Stat
Reason for Study: Abdominal Pain
EKG- Treatment ONCE
0.9% Sodium Chloride 1000 ml [Nss] 1,000 ml IV BOLUS
Famotidine [Pepcid] 20 mg IV NOW STA
Ondansetron Injectable [Zofran] 4 mg IV NOW STA
03/11/24 15:57
Complete Blood Count/With Diff Urgent
Comprehensive Metabolic Panel Urgent
Lipase Urgent
03/11/24 17:33
Vital Signs- Treatment ONCE
Frequency: Once
03/11/24 17:44
Urinalysis Reflex To Culture Urgent
Date Specimen was Collected: 03/11/24
Time Specimen was Collected: 17:36
Abnormal Lab Results
03/11/24
15:57
RBC 4.17 L 10^6/uL
(4.20-5.40)
MCH 32.1 H pg
(27.0-31.0)
Glucose 104 H mg/dl
(70-99)
Alkaline Phosphatase 150 H U/L
(38-126)
03/11/24 15:57
03/11/24 15:57
Vital Signs
Initial and Last Documented VS:
Initial Vital Signs
Temp Pulse Resp BP Pulse Ox
98.3 F 95 18 203/115 98
03/11/24 15:50 03/11/24 15:50 03/11/24 15:50 03/11/24 15:50 03/11/24 15:50
Last Documented Vital Signs
Temp Pulse Resp BP Pulse Ox
98.3 F 95 18 203/115 98
03/11/24 15:50 03/11/24 15:50 03/11/24 15:50 03/11/24 15:50 03/11/24 15:50
MDM/Problems Addressed
Differential Diagnosis Includes:
Not limited to medication side effect nausea vomiting diarrhea from Paxlovid) weakness secondary to recent COVID weakness secondary due to dehydration
MDM/Problems Addressed:
Patient is a 73-year-old female who had COVID last week took Paxlovid and then after had diarrhea and vomiting and felt weak since. She has not had diarrhea since yesterday she has however felt nauseous and has had a decreased appetite because of
this. She felt weak. She presented here awake alert no acute distress afebrile with stable vital signs. Patient was given Zofran and fluids feeling much better. Tolerating fluids. Nml labs
Stable for discharge home with Zofran.
*Pulse Oximetry
Patient hypoxic: no
*Critical Care Note
Total Time (30-74mins, 75-104mins- exclusive of procedures): Not Applicable
ED Attending Note
-
Portions of this chart may have been created with voice recognition software.� Occasional wrong word or��sound alike� substitutions may have occurred due to the inherent limitations of voice recognition software.
Discharge Plan
Departure
Patient Disposition: Home (Routine Discharge)
Date of Disposition: 03/11/24
Time of Disposition: 19:25
Patient with high blood pressure during this ER visit?: Yes
Condition: Fair
Covid-19: Not Applicable
Discharge Problem:
Weakness, Nausea
Instructions: Nausea and Vomiting, Adult (DC), Weakness ED, BLOOD PRESSURE
Prescriptions:
New
ondansetron 4 mg tablet,disintegrating
4 mg PO Q8H Qty: 10 0RF
No Action
omeprazole 40 MG capsule,delayed release(DR/EC)
40 mg PO DAILY
metoprolol succinate 25 MG tablet extended release 24 hr
25 mg PO DAILY
loratadine 10 MG tablet
10 mg PO DAILY
atorvastatin 80 MG tablet
80 mg PO HS
multivitamin Tablet
1 tab PO DAILY
sertraline 50 mg Tablet
50 mg PO DAILY
Nurtec ODT 75 mg Tablet,Disintegrating
75 mg PO DAILYPRN PRN (Reason: MIGRANES)
aspirin 325 mg Tablet
325 mg PO DAILY
bismuth subsalicylate [Pepto-Bismol] 262 mg/15 mL Suspension
524 mg PO BIDPRN PRN (Reason: GERD)
lisinopril 20 mg Tablet
20 mg PO BID 30 Days Qty: 60 0RF
Referrals:
Jorge Cowan PA-C [Family Provider] -
Activity Restrictions/Additional Instructions:
As discussed a prescription for Zofran was sent to your pharmacy. Increase fluids. Be sure to get plenty rest. Follow-up with family doctor the next several days and return if any worsening of symptoms.
Interventions
Interventions:
*Risk Screen - Suicide Last Done: 03/11/24 15:50
*General Assessment Last Done: 03/11/24 15:50
*Neglect/Abuse Screening Last Done: 03/11/24 15:50
KP-Hkejev-Chvvymtwsh Assessment Last Done: 03/11/24 16:11
Discharge Date and Time
Print Language: MALAY
[2024-03-11 17:53] LABS: Urine Albumin Negative (Neg - Trace); Urine Bilirubin Negative (Negative); Urine Character Clear (Clear); Urine Color Yellow; Urine Glucose Negative (Negative); Urine Ketone Negative (Negative); Urine Leukocyte Negative (Negative); Urine Nitrite Negative (Negative); Urine Occult Blood Negative (Negative); Urine Specific Gravity 1.005 (<1.030); Urine Urobilinogen Negative (Neg - 1+); Urine pH 6.5 (5.0-9.0)
== END 2024-03-11 19:42 | disposition home or self-care (01) ==
LOC: EMR 15:39
PROVIDERS: Physician Assistant; EMERGENCY PHYSICIAN Emergency Medicine; FAMILY PHYSICIAN Physician Assistant Medical
DX: R53.1 Weakness (principal); R11.2 Nausea with vomiting, unspecified; I10 Essential (primary) hypertension
CPT/HCPCS: 99284; 96374; 96375; 96361; 80053; 81003; 83690; 85025; 93005

== ENCOUNTER → 2024-03-31 13:05 | Outpatient (REF) | payer MEDICARE, SELFPAY ==
[2024-03-31 14:37] LABS: Hematocrit 35.5 % (37.0-47.0); Hemoglobin 11.9 g/dL (12.0-16.0); Mean Corp Hgb Conc. 33.5 g/dL (33.0-37.0); Mean Corpuscular Hgb 31.4 pg (27.0-31.0); Mean Corpuscular Volume 93.7 fL (81.0-99.0); Mean Platelet Volume 10.6 fL (7.4-10.4); Platelet Count 193 10^3/uL (130-400); Red Blood Cell Count 3.79 10^6/uL (4.20-5.40); Red Cell Dist. Width 12.8 % (11.5-14.5); White Blood Cell Count 6.2 10^3/uL (4.8-10.8)
[2024-03-31 15:00] LABS: Blood Urea Nitrogen 14 mg/dl (7-17); Calcium 9.7 mg/dl (8.4-10.2); Carbon Dioxide 26 mmol/L (22-30); Chloride 103 mmol/L (98-107); Glucose 95 mg/dl (70-99); Potassium 4.1 mmol/L (3.5-5.1); Sodium 140 mmol/L (135-145); eGFR > 60.00
[2024-03-31 15:02] LABS: C-Reactive Protein < 5.00 mg/L (0.0-10.00)
[2024-03-31 15:30] LABS: Erythrocyte Sed Rate 18 mm/hour (0-20)
[2024-03-31 15:32] LABS: TSH Reflex To Free T4 2.86 uIU/ml (0.47-4.68)
[2024-04-01 15:46] LABS: tTG IgA Antibody 7.4 EU/ml (0-19); tTG IgG Antibody 5.8 EU/ml (0-19)
[2024-04-01 23:36] LABS: IgA 187 mg/dl (70-400)
== END ==
LOC: REG 13:05
PROVIDERS: ATTENDING PHYSICIAN Nurse Practitioner Family; FAMILY PHYSICIAN Physician Assistant Medical
DX: R19.4 Change in bowel habit (principal)
CPT/HCPCS: 36415; 80048; 82705; 82784; 83516; 83993; 84443; 85027; 85652; 86140; 86231; 87045; 87046; 87328; 87329; 87427; 89055

== ENCOUNTER → 2024-04-07 06:25 | Day surgery (SDC) | payer MEDICARE, SELFPAY | LOC: GI 06:25 | PROVIDERS: ATTENDING PHYSICIAN Internal Medicine | DX: K55.9 Vascular disorder of intestine, unspecified (principal); K57.30 Diverticulosis of large intestine without perforation or abscess without bleeding; K64.9 Unspecified hemorrhoids | CPT/HCPCS: 45380; 88305 ==

== ENCOUNTER 2024-06-15 15:19 | Emergency (ER) | payer MEDICARE, SELFPAY ==
[2024-06-15 15:30] VITALS: BP 154/88
--- NOTE | 2024-06-15 15:58 | ED.GENMED ---
History of Present Illness
General
Chief Complaint: Fall
Source: patient
Exam Limitations: none
Time Seen by Provider: 06/15/24 15:58
Nursing documentation reviewed up to this point in time: agreed with
History of Present Illness
History of Present Illness:
73-year-old female with history of CVA, HTN, pacemaker, GERD, IBS, ischemic colitis presents for checkup after a fall 2 days ago while walking on sidewalk, shoe caught in uneven pavement and she fell onto her left side impaction the left side of her
head and face on the ground. Scraped left knee, has pain in right knee with weight bearing. No LOC. Not anticoagulated
States she's been dizzy, has 8/10 general headache, blurry vision left eye since. Mild neck soreness. Denies back pain. Denies numbness, weakness in extremities.
Past History
Past History
ED Past Medical History: Arrthythmia (HB), CVA (2013, 2016, twice in 2017, November 2020), GERD, HTN, Hypercholesterolemia and Other (Ulcerative colitis-no biologics, IBS, Cat scratch fever)
ED Past Surgical History: Appendectomy, Cardiac (pacer for bradycardia=30), Gynecological and Orthopedic
Social History
Tobacco: Non-smoker
Alcohol: Occasional
Drug: None
Personal:
Living: with family
Employment: Not employed
Family History
Family History: Other (stroke in distantly related family members)
Review of Systems
Review of Systems
Allergies reviewed?: Yes
All Other Systems: ROS reviewed and negative except as documented in HPI and ROS
Constitutional: Denies fever
EENT: Reports other (blurry vision left eye)
Respiratory: Denies trouble breathing
Cardiac: Denies chest pain
ABD/GI: Denies abdominal pain or nausea
Musculoskeletal: Reports other (pain right knee)
Skin: Reports other (small bruise chin)
Neurological: Reports dizzy and headache; Denies weakness or numbness
Phy Exam
Physical Exam
Physical Exam:
GENERAL: No acute distress. A&Ox3.
CONSTITUTIONAL: Afebrile.
Head: Tender to palpate left roman catholic, cheek, chin, no swelling noted, mild bruise on left side of chin.
EYES: PERRL, conjunctivae normal, EOMs intact.
Neck: Supple
ENMT: moist mucus membranes, Pharynx nl, full ROM of jaw.
RESPIRATORY: Regular respirations, nonlabored, lungs clear.
CARDIOVASCULAR: Regular rate and rhythm, no murmurs, no rubs.
GI: Soft, nontender, normal BS
MUSCULOSKELETAL: No spinal bony tenderness. Mild tenderness about the right knee, no swelling, full ROM. Distal n/v intact. Moves with ease. Well perfused.
SKIN: Warm, dry, pink
PSYCH: Normal mood and affect. Well kept, interactive and appropriate
NEUROLOGIC: Awake, alert and oriented. No focal neurological deficits. Ambulates well with mild limp due to R knee pain.
Course
Orders/Labs/Results
Orders:
Orders
06/15/24 15:32
CT Head W/o Iv Contrast Urgent
Comment:
Reason For Exam: head trauma
Knee, Right 1 or 2 Views [CR Knee - Right 1 Or 2 Views] Urgent
Comment:
Reason For Exam: fall
06/15/24 17:36
Visual Acuity- Treatment ONCE
Vital Signs
Initial and Last Documented VS:
Initial Vital Signs
Temp Pulse Resp BP Pulse Ox
98 F 69 16 154/88 97
06/15/24 15:30 06/15/24 15:30 06/15/24 15:30 06/15/24 15:30 06/15/24 15:30
Last Documented Vital Signs
Temp Pulse Resp BP Pulse Ox
98 F 63 16 176/98 97
06/15/24 15:30 06/15/24 18:18 06/15/24 18:18 06/15/24 18:18 06/15/24 18:18
MDM/Problems Addressed
Differential Diagnosis Includes:
post traumatic headache, concussion
knee sprain, fracture
MDM/Problems Addressed:
73-year-old female with history of CVA, HTN, pacemaker, GERD, IBS, ischemic colitis presents for checkup after a fall 2 days ago while walking on sidewalk, shoe caught in uneven pavement and she fell onto her left side impaction the left side of her
head and face on the ground. Scraped left knee, has pain in right knee with weight bearing. No LOC. Not anticoagulated
States she's been dizzy, has 8/10 general headache, blurry vision left eye since. Mild neck soreness. Denies back pain. Denies numbness, weakness in extremities.
R knee xray neg
Head CT shows nothing acute
Pt ambulating with minimal limp
She now admits she has a cataract left eye which may explain her blurry vision.
Visual acuity 20/60 each eye and both eyes. Recommended eye exam. She has seen Dr. Stovall in the past.
Kindly declines when jimena wrap to knee offered.
*Critical Care Note
Total Time (30-74mins, 75-104mins- exclusive of procedures): Not Applicable
ED Attending Note
-
Portions of this chart may have been created with voice recognition software.� Occasional wrong word or��sound alike� substitutions may have occurred due to the inherent limitations of voice recognition software.
Discharge Plan
Departure
Patient Disposition: Home (Routine Discharge)
Date of Disposition: 06/15/24
Time of Disposition: 17:52
Patient with high blood pressure during this ER visit?: No
Condition: Good
Discharge Problem:
Acute post-traumatic headache, Contusion of left knee, Soft tissue injury of right knee, Contusion of face
Instructions: Head Injury in Adults (DC), Contusion (DC), Knee Sprain ED
Prescriptions:
No Action
omeprazole 40 MG capsule,delayed release(DR/EC)
40 mg PO DAILY
metoprolol succinate 25 MG tablet extended release 24 hr
25 mg PO DAILY
loratadine 10 MG tablet
10 mg PO DAILY
atorvastatin 80 MG tablet
80 mg PO HS
multivitamin Tablet
1 tab PO DAILY
sertraline 50 mg Tablet
50 mg PO DAILY
Nurtec ODT 75 mg Tablet,Disintegrating
75 mg PO DAILYPRN PRN (Reason: MIGRANES)
aspirin 325 mg Tablet
325 mg PO DAILY
bismuth subsalicylate [Pepto-Bismol] 262 mg/15 mL Suspension
524 mg PO BIDPRN PRN (Reason: GERD)
lisinopril 20 mg Tablet
20 mg PO BID 30 Days Qty: 60 0RF
ondansetron 4 mg tablet,disintegrating
4 mg PO Q8H Qty: 10 0RF
Referrals:
Your, Doctor [Other] - As needed
Nelson Stovall MD [Active] - Next open appointment
UNKNOWN - PT DOES,NOT KNOW [Family Provider] -
Activity Restrictions/Additional Instructions:
As we discussed, your head CT scan and knee xray show nothing worrisome.
Please have your eyes examined as your vision is not that good (20/60 each eye and 20/60 both eyes)
See your doctor in one week if your headache and dizziness are not much improved by then.
Interventions
Interventions:
*Risk Screen - Suicide Last Done: 06/15/24 15:32
*Neglect/Abuse Screening Last Done: 06/15/24 15:32
*ED COVID-19 Vaccine History Last Done: 06/15/24 15:32
*Nursing Disposition Last Done: 06/15/24 18:20
ED-Musculoskeletal Assessment Last Done: 06/15/24 16:21
ED- Neurological Assessment Last Done: 06/15/24 16:21
Discharge Date and Time
Discharge Date/Time: 06/15/24 18:20
Print Language: KAZAKH
[2024-06-15 18:18] VITALS: BP 176/98
== END 2024-06-15 18:20 | disposition home or self-care (01) ==
LOC: EMR 15:19
PROVIDERS: EMERGENCY PHYSICIAN Emergency Medicine
DX: G44.319 Acute post-traumatic headache, not intractable (principal); S80.02XA Contusion of left knee, initial encounter; S00.83XA Contusion of other part of head, initial encounter; S89.91XA Unspecified injury of right lower leg, initial encounter; R42 Dizziness and giddiness; M54.2 Cervicalgia; R11.0 Nausea; W19.XXXA Unspecified fall, initial encounter; H26.9 Unspecified cataract; I10 Essential (primary) hypertension; E78.00 Pure hypercholesterolemia, unspecified; K51.90 Ulcerative colitis, unspecified, without complications; K21.9 Gastro-esophageal reflux disease without esophagitis; K58.9 Irritable bowel syndrome, unspecified; Z95.0 Presence of cardiac pacemaker; Z86.73 Personal history of transient ischemic attack (TIA), and cerebral infarction without residual deficits; Z79.82 Long term (current) use of aspirin; Z88.5 Allergy status to narcotic agent; Z88.2 Allergy status to sulfonamides; Z88.1 Allergy status to other antibiotic agents; Z91.040 Latex allergy status
CPT/HCPCS: 99284; 70450; 73560

== ENCOUNTER 2024-07-19 00:32 | Observation (INO) | payer MEDICARE, SELFPAY ==
[2024-07-18 14:43] VITALS: BP 167/108
[2024-07-18 15:19] LABS: % Basophils 0.6 % (0-2); % Eosinophils 2.8 % (0-6); % Immature Granulocytes 1.6 % (0-0.5); % Lymphocytes 25.5 % (20.5-51.1); % Monocytes 5.2 % (1.7-9.3); % Neutrophils 64.3 % (42.2-75.2); Absolute Eosinophils 0.2 10^3/uL (0-0.7); Absolute Immature Granulocytes 0.1 10^3/uL (0-0.05); Absolute Lymphocytes 1.8 10^3/uL (1.2-3.4); Absolute Monocytes 0.4 10^3/uL (0.1-0.6); Absolute Neutrophils 4.4 10^3/uL (1.4-6.5); Hematocrit 41.5 % (37.0-47.0); Hemoglobin 14.2 g/dL (12.0-16.0); Mean Corp Hgb Conc. 34.2 g/dL (33.0-37.0); Mean Corpuscular Hgb 32.5 pg (27.0-31.0); Mean Platelet Volume 10.1 fL (7.4-10.4); Nucleated Red Blood Cells % 0 %; Platelet Count 182 10^3/uL (130-400); Red Blood Cell Count 4.37 10^6/uL (4.20-5.40); Red Cell Dist. Width 11.9 % (11.5-14.5); White Blood Cell Count 6.9 10^3/uL (4.8-10.8)
[2024-07-18 15:33] LABS: ALT (SGPT) 15 U/L (0-35); AST (SGOT) 24 U/L (14-36); Albumin 4.7 g/dl (3.5-5.0); Alkaline Phosphatase 123 U/L (38-126); Blood Urea Nitrogen 23 mg/dl (7-17); Calcium 9.7 mg/dl (8.4-10.2); Carbon Dioxide 21 mmol/L (22-30); Chloride 105 mmol/L (98-107); Glucose 135 mg/dl (70-99); Lipase 125 U/L (23-300); Potassium 3.7 mmol/L (3.5-5.1); Sodium 140 mmol/L (135-145); Total Bilirubin 0.9 mg/dl (0.2-1.3); Total Protein 7.3 g/dl (6.3-8.2); eGFR 59.86
[2024-07-18 15:41] LABS: Troponin I 0.016 ng/ml
--- NOTE | 2024-07-18 17:03 | ED.GENMED ---
History of Present Illness
<Kiana Ruiz PA-C - Last Filed: 07/18/24 22:26>
General
Chief Complaint: Abdominal Symptoms
Source: patient
Exam Limitations: none
Time Seen by Provider: 07/18/24 16:57
Nursing documentation reviewed up to this point in time: agreed with
History of Present Illness
History of Present Illness:
73-year-old female with a past medical history of hypertension, GERD, IBS, SVT, heart block pacemaker in place presents emergency department today with concerns of nausea, vomiting, abdominal pain. This started approximately 1 week ago. Patient
states that she was in contact with other people who had gastrointestinal symptoms and had diarrhea. Patient did have a few episodes of diarrhea earlier in the week but these have since resolved. Patient does have pain in her right upper quadrant
has been getting progressively worse. Patient states that she has decreased appetite and anytime she tries to eat something, she will vomit. Patient denies any chest pain, she denies any shortness of breath. She also notes that the pain in her
right upper quadrant radiates to the right subscapular area. She has been having bowel movements and passing gas. She has had a appendectomy in the past but states that she does have her gallbladder.
Past History
<Kiana Ruiz PA-C - Last Filed: 07/18/24 22:26>
Past History
ED Past Medical History: Arrthythmia (HB), CVA (2013, 2016, twice in 2017, November 2020), GERD, HTN, Hypercholesterolemia and Other (Ulcerative colitis-no biologics, IBS, Cat scratch fever)
ED Past Surgical History: Appendectomy, Cardiac (pacer for bradycardia=30), Gynecological and Orthopedic
Social History
Tobacco: Non-smoker
Alcohol: Occasional
Drug: None
Personal:
Living: with family
Employment: Not employed
Family History
Family History: Other (stroke in distantly related family members)
Review of Systems
<Kiana Ruiz PA-C - Last Filed: 07/18/24 22:26>
Review of Systems
All Other Systems: ROS reviewed and negative except as documented in HPI and ROS
Phy Exam
<Kiana Ruiz PA-C - Last Filed: 07/18/24 22:26>
Physical Exam
Physical Exam:
General: Patient is well appearing and in no acute distress; non-toxic
Skin: Warm and dry, no rashes or lesions
Head: Normocephalic, atraumatic
Eyes: Sclera non-icteric. EOMs intact. PERRLA.
Cardiac: Regular rate and rhythm, no murmurs
Peripheral Vascular: No lower extremity swelling or edema
Pulm: Normal respiratory effort, no wheezes, rales, rhonchi
Abdomen: Patient has RUQ tenderness to palpation with fuardi
Musculoskeletal: Patient does have minimal tenderness noted to right periscapular area
Neuro: CN II-XII intact, no focal neurologic deficits.
Psychiatric: Appropriate mood and affect.
Course
<Kiana Ruiz PA-C - Last Filed: 07/18/24 22:26>
Orders/Labs/Results
Orders:
Orders
07/18/24 14:45
Electrocardiogram (*1) Urgent
Reason for Study: Abdominal Pain
EKG- Treatment ONCE
07/18/24 15:03
Complete Blood Count/With Diff Urgent
Comprehensive Metabolic Panel Urgent
Lipase Urgent
07/18/24 15:04
Troponin I Urgent
07/18/24 17:14
US Abdomen Limited Urgent
Comment:
Reason For Exam: right upper quadrant pain
07/18/24 17:19
0.9% Sodium Chloride 500 ml [Nss] 500 ml IV BOLUS
Ondansetron Injectable [Zofran] 4 mg IV NOW STA
07/18/24 17:50
Urinalysis Reflex To Culture Urgent
07/18/24 18:31
Ketorolac [Toradol] 15 mg IV NOW STA
07/18/24 21:52
CT Abd/pelvis W Iv Cont Urgent
Comment:
Reason For Exam: right sided abdominal pain
Abnormal Lab Results
07/18/24
15:03
MCH 32.5 H pg
(27.0-31.0)
Abs Immat Gran (auto) 0.1 H 10^3/uL
(0-0.05)
Immature Gran % 1.6 H %
(0-0.5)
Carbon Dioxide 21 L mmol/L
(22-30)
BUN 23 H mg/dl
(7-17)
Glucose 135 H mg/dl
(70-99)
07/18/24 15:03
07/18/24 15:03
Vital Signs
Initial and Last Documented VS:
Initial Vital Signs
Temp Pulse Resp BP Pulse Ox
98.2 F 113 16 167/108 100
07/18/24 14:43 07/18/24 14:43 07/18/24 14:43 07/18/24 14:43 07/18/24 14:43
Last Documented Vital Signs
Temp Pulse Resp BP Pulse Ox
98.2 F 81 16 159/86 97
07/18/24 14:43 07/18/24 18:39 07/18/24 18:39 07/18/24 20:00 07/18/24 20:30
<Angelina Perez MD - Last Filed: 07/18/24 18:32>
Orders/Labs/Results
Orders:
Orders
07/18/24 14:45
Electrocardiogram (*1) Urgent
Reason for Study: Abdominal Pain
EKG- Treatment ONCE
07/18/24 15:03
Complete Blood Count/With Diff Urgent
Comprehensive Metabolic Panel Urgent
Lipase Urgent
07/18/24 15:04
Troponin I Urgent
07/18/24 17:14
US Abdomen Limited Urgent
Comment:
Reason For Exam: right upper quadrant pain
07/18/24 17:19
0.9% Sodium Chloride 500 ml [Nss] 500 ml IV BOLUS
Ondansetron Injectable [Zofran] 4 mg IV NOW STA
07/18/24 17:50
Urinalysis Reflex To Culture Urgent
07/18/24 18:31
Ketorolac [Toradol] 15 mg IV NOW STA
07/18/24 21:52
CT Abd/pelvis W Iv Cont Urgent
Comment:
Reason For Exam: right sided abdominal pain
Abnormal Lab Results
07/18/24
15:03
MCH 32.5 H pg
(27.0-31.0)
Abs Immat Gran (auto) 0.1 H 10^3/uL
(0-0.05)
Immature Gran % 1.6 H %
(0-0.5)
Carbon Dioxide 21 L mmol/L
(22-30)
BUN 23 H mg/dl
(7-17)
Glucose 135 H mg/dl
(70-99)
07/18/24 15:03
07/18/24 15:03
Vital Signs
Initial and Last Documented VS:
Initial Vital Signs
Temp Pulse Resp BP Pulse Ox
98.2 F 113 16 167/108 100
07/18/24 14:43 07/18/24 14:43 07/18/24 14:43 07/18/24 14:43 07/18/24 14:43
Last Documented Vital Signs
Temp Pulse Resp BP Pulse Ox
98.2 F 81 16 159/86 97
07/18/24 14:43 07/18/24 18:39 07/18/24 18:39 07/18/24 20:00 07/18/24 20:30
<Kiana Ruiz PA-C - Last Filed: 07/18/24 22:26>
MDM/Problems Addressed
Differential Diagnosis Includes:
see below
MDM/Problems Addressed:
NUMBER AND COMPLEXITY OF PROBLEMS ADDRESSED AT THE ENCOUNTER
� Chronic conditions affecting care: Stroke, IBS, HTN
� Acute Exacerbation and/or Progression of Chronic Illness:
� Differential Diagnosis includes: Cholecystitis, biliary colic, diverticulitis, colitis
AMOUNT AND/OR COMPLEXITY OF DATA TO BE REVIEWED AND ANALYZED
� I performed an independent evaluation of and my interpretation is:
US negative, will send for CT
Laboratory Studies: normal lipase, no elevation of LFTs
Other:
� Review of other/old records: Reviewed previous ER physician documentation from 06/15/2024, patient seen for headache following trip and fall hitting her head, reviewed discharge summary from 11/29/2023 patient was seen for near syncope
� Clinical information was obtained by an independent historian: n/a
� Prescriptions/Medications Considered but not given: none
� Further testing considered but not performed: n/a
RISK OF COMPLICATIONS AND/OR MORBIDITY OR MORTALITY OF PATIENT MANAGEMENT
� Social determinants of health affecting care: none
� Discussion with other providers: ER attending
� Escalation of care including admission/observation vs risk of discharge considered:
73-year-old female presents emergency department with concerns of right-sided abdominal pain, nausea, vomiting for the past week. She denies any fevers or chills. She has a lot of vomiting anytime she attempts to eat food. On exam, she is
afebrile, well-appearing, does have a lot of abdominal tenderness palpation with guarding however no palpable abdominal masses, normoactive bowel sounds. She is sent for ultrasound of the abdomen which was negative for any evidence of cholecystitis
or gallstones. Will send for CAT scan to rule out any other acute abdominal pathology such as diverticulitis
<Kiana Ruiz PA-C - Last Filed: 07/18/24 22:26>
*Pulse Oximetry
Patient hypoxic: no
*Critical Care Note
Total Time (30-74mins, 75-104mins- exclusive of procedures): Not Applicable
<Kiana Ruiz PA-C - Last Filed: 07/18/24 22:26>
Update Note
Update Note:
Update right upper quadrant ultrasound negative, will send for CAT scan of the lower any diverticulitis or any other acute intra-abdominal pathology. Patient is not requesting any further pain medication at this time.
10:24 pm-- Dr. Davis will follow up on CT results
ED Attending Note
<Kiana Ruiz PA-C - Last Filed: 07/18/24 22:26>
-
Portions of this chart may have been created with voice recognition software.� Occasional wrong word or��sound alike� substitutions may have occurred due to the inherent limitations of voice recognition software.
<Angelina Perez MD - Last Filed: 07/18/24 18:32>
ED Attending Note
Patient seen and examined by attending physician: Yes
I performed the substantive portion of visit, reviewed & personally made and approve the management plan that is documented in note by myself or BROWN.: Yes
ED Attending Note:
Patient appears nontoxic but slightly uncomfortable. We will give IV Toradol for her discomfort. She is awaiting ultrasound. Patient complains of several days of right upper quadrant pain, and associated nausea and vomiting whenever she eats. On
exam, patient's lungs are clear and abdomen is soft with right upper quadrant tenderness.
Discharge Plan
Departure
Prescriptions:
No Action
omeprazole 40 MG capsule,delayed release(DR/EC)
40 mg PO DAILY
metoprolol succinate 25 MG tablet extended release 24 hr
25 mg PO DAILY
loratadine 10 MG tablet
10 mg PO DAILY
atorvastatin 80 MG tablet
80 mg PO HS
multivitamin Tablet
1 tab PO DAILY
sertraline 50 mg Tablet
50 mg PO DAILY
Nurtec ODT 75 mg Tablet,Disintegrating
75 mg PO DAILYPRN PRN (Reason: MIGRANES)
aspirin 325 mg Tablet
325 mg PO DAILY
bismuth subsalicylate [Pepto-Bismol] 262 mg/15 mL Suspension
524 mg PO BIDPRN PRN (Reason: GERD)
lisinopril 20 mg Tablet
20 mg PO BID 30 Days Qty: 60 0RF
ondansetron 4 mg tablet,disintegrating
4 mg PO Q8H Qty: 10 0RF
Referrals:
Jorge Cowan PA-C [Family Provider] -
Interventions
Interventions:
*Risk Screen - Suicide Last Done: 07/18/24 14:43
*General Assessment Last Done: 07/18/24 17:28
*Neglect/Abuse Screening Last Done: 07/18/24 14:43
ED- Fall Risk Assessment Last Done: 07/18/24 17:28
*ED COVID-19 Vaccine History Last Done: 07/18/24 17:28
IE-Thmwlh-Bpdyfsrvxg Assessment Last Done: 07/18/24 17:29
Discharge Date and Time
Print Language: DANISH
[2024-07-18 17:28] VITALS: BMI 26.6
[2024-07-18 17:31] VITALS: BP 146/101
[2024-07-18] MEDS: NSS 500 IV (18:36)
[2024-07-18] MEDS: TORADOL 15 MG IV (18:36)
[2024-07-18] MEDS: ZOFRAN 4 MG IV (18:36)
[2024-07-18 18:39] VITALS: BP 157/107
[2024-07-18 19:00] VITALS: BP 147/84
[2024-07-18 20:00] VITALS: BP 159/86
[2024-07-18 23:22] VITALS: BP 159/95
--- NOTE | 2024-07-18 23:54 | ED.GENMED ---
History of Present Illness
General
Chief Complaint: Abdominal Symptoms
Time Seen by Provider: 07/18/24 16:57
History of Present Illness
History of Present Illness:
Patient presents with right upper quadrant pain
Past History
Past History
ED Past Medical History: Arrthythmia (HB), CVA (2013, 2017, twice in 2017, November 2020), GERD, HTN, Hypercholesterolemia and Other (Ulcerative colitis-no biologics, IBS, Cat scratch fever)
ED Past Surgical History: Appendectomy, Cardiac (pacer for bradycardia=30), Gynecological and Orthopedic
Social History
Tobacco: Non-smoker
Alcohol: Occasional
Drug: None
Personal:
Living: with family
Employment: Not employed
Family History
Family History: Other (stroke in distantly related family members)
Phy Exam
Physical Exam
Physical Exam:
Patient appears uncomfortable. Patient has right upper quadrant tenderness on exam without rebound or guarding.
Course
Orders/Labs/Results
Orders:
Orders
07/18/24 14:45
Electrocardiogram (*1) Urgent
Reason for Study: Abdominal Pain
EKG- Treatment ONCE
07/18/24 15:03
Complete Blood Count/With Diff Urgent
Comprehensive Metabolic Panel Urgent
Lipase Urgent
07/18/24 15:04
Troponin I Urgent
07/18/24 17:14
US Abdomen Limited Urgent
Comment:
Reason For Exam: right upper quadrant pain
07/18/24 17:19
0.9% Sodium Chloride 500 ml [Nss] 500 ml IV BOLUS
Ondansetron Injectable [Zofran] 4 mg IV NOW STA
07/18/24 17:50
Urinalysis Reflex To Culture Urgent
07/18/24 18:31
Ketorolac [Toradol] 15 mg IV NOW STA
07/18/24 21:52
CT Abd/pelvis W Iv Cont Urgent
Comment:
Reason For Exam: right sided abdominal pain
07/19/24 00:22
Admit/Transfer Patient As Directed
Co-Sign Provider:
Level of Care: Observation services
Assign to:: Medical/Surgical
Physician / Group: hospitalist
Diagnosis: acute gastritis
Famotidine [Pepcid] 20 mg IV NOW STA
PRN Pain Medication Management As Directed
May give lesser potent ordered pain med per pt: Yes
preference::
Protocol:: Medication orders for pain may be administered in a
manner that supports deferring to patient preference
when the pt is:
- Requesting an ordered lesser potent pain medication.
Least to most potent pain medications are defined
as: acetaminophen < NSAID < tramadol < opioids
(morphine, oxycodone, hydromorphone).
- Requesting a lesser dose of the same medication IF
ORDERED.
- Requesting a less intrusive route of administration
if both routes are prescribed by the provider (PO <
IV).
07/19/24 00:23
Code Status As Directed
Resuscitation Status: Full Code
07/19/24 00:25
0.9% Sodium Chloride [Nss (Preservative Free)] 8 ml IV NOW STA
07/19/24 01:00
Flush (0.9% Sodium Chloride) [Flush (Nss)] See Dose Instructions IV PER PROTOCOL
Abnormal Lab Results
07/18/24
15:03
MCH 32.5 H pg
(27.0-31.0)
Abs Immat Gran (auto) 0.1 H 10^3/uL
(0-0.05)
Immature Gran % 1.6 H %
(0-0.5)
Carbon Dioxide 21 L mmol/L
(22-30)
BUN 23 H mg/dl
(7-17)
Glucose 135 H mg/dl
(70-99)
07/18/24 15:03
07/18/24 15:03
Vital Signs
Initial and Last Documented VS:
Initial Vital Signs
Temp Pulse Resp BP Pulse Ox
98.2 F 113 16 167/108 100
07/18/24 14:43 07/18/24 14:43 07/18/24 14:43 07/18/24 14:43 07/18/24 14:43
Last Documented Vital Signs
Temp Pulse Resp BP Pulse Ox
98.2 F 73 16 159/95 98
07/18/24 14:43 07/18/24 23:22 07/18/24 23:22 07/18/24 23:22 07/18/24 23:22
*Radiology
Radiology exam reviewed: radiology read reviewed
*Inspector Of Dredging Interpretation
Rate: Inspector Of Dredging- N/A
*Critical Care Note
Total Time (30-74mins, 75-104mins- exclusive of procedures): Not Applicable
Update Note
Update Note:
11:55 PM patient's CAT scan shows no sign of intra-abdominal process explaining patient's persistent right upper quadrant pain and tenderness. I did notice that patient's troponin is not completely negative. Of consideration would also be doing a
PE study given that patient has pain tucked under the right rib cage.
ED Attending Note
-
Portions of this chart may have been created with voice recognition software.� Occasional wrong word or��sound alike� substitutions may have occurred due to the inherent limitations of voice recognition software.
Discharge Plan
Departure
Patient Disposition: Admit
Date of Disposition: 07/18/24
Time of Disposition: 23:50
Admit to: Med/Surg
Presentation/result/management discussed w/ accepting MD/DO: Hospitalist
Patient with high blood pressure during this ER visit?: Yes
Condition: Good
Covid-19: Not Applicable
Discharge Problem:
Intractable right upper quadrant abdominal pain
Prescriptions:
No Action
omeprazole 40 MG capsule,delayed release(DR/EC)
40 mg PO DAILY
metoprolol succinate 25 MG tablet extended release 24 hr
25 mg PO DAILY
loratadine 10 MG tablet
10 mg PO DAILY
atorvastatin 80 MG tablet
80 mg PO HS
multivitamin Tablet
1 tab PO DAILY
sertraline 50 mg Tablet
50 mg PO DAILY
Nurtec ODT 75 mg Tablet,Disintegrating
75 mg PO DAILYPRN PRN (Reason: MIGRANES)
lisinopril 20 mg tablet
40 mg PO BID
Referrals:
Jorge Cowan PA-C [Family Provider] -
Interventions
Interventions:
*Risk Screen - Suicide Last Done: 07/18/24 14:43
*General Assessment Last Done: 07/18/24 17:28
*Neglect/Abuse Screening Last Done: 07/18/24 14:43
ED- Fall Risk Assessment Last Done: 07/18/24 17:28
*ED COVID-19 Vaccine History Last Done: 07/18/24 17:28
PF-Mwmwuw-Rlkzmqybxc Assessment Last Done: 07/18/24 17:29
Discharge Date and Time
Print Language: AMERICAN
--- NOTE | 2024-07-19 00:12 | HPS.HSE ---
Family Physician
-
Family Physician: Jorge Cowan
Chief Complaint
-
Abdominal pain
History of Present Illness
This is a 73-year-old female who has a past medical history of GERD, IBS/IBD, HLD, hypertension, prior CVA, sick sinus syndrome status post pacemaker who presents to the emergency department with right upper quadrant abdominal pain for about 6 days.
Patient reports onset was after exposure to a coworker for a brief. Who had 'stomach bug'. Patient initially thought this was a stomach bug because she had mild diarrhea and some nausea the following day. That symptom appeared to resolve resolved
but she continued to have abdominal pain thereafter. He reports the localization is mostly in the right upper quadrant without radiation. She denies flank pain. She denies any urinary symptoms. He reports that she has nausea. She vomits anytime
she tries to take any food or her medications. She has not been able to tolerate even or omeprazole for a few days now. She denied chest pain. She denies shortness of breath. She denied any pleuritic symptoms. She reports [facility] she is
having chills but no fevers. She has no other sick contacts. She denies any melena. No hematochezia. No hematemesis.
Patient reports a fall in March where she did hit her head and she was was worried about a rib pain. However she denied pain with any particular movement or deep inspiration.
In the emergency department the patient was afebrile, blood pressure was 160/90 with a pulse of 73. ECG showed a normal sinus rhythm at 82. Troponin was 0.016. CBC was unremarkable. Electrolytes and BUN were within the normal range. LFTs
normal, lipase normal. Ultrasound of the right upper quadrant shows no significant abnormality. There was negative sonographic Mcknight sign. CT of the abdomen and pelvis likewise shows no acute intra-abdominal process.
Medical History
Past Medical History
Past Medical History: Reports Arrhythmia (Sick sinus syndrome status post pacemaker), CVA, GERD, HTN and Hypercholesterolemia
Past Surgical History: Reports Other
Social History
Tobacco: Non-smoker
Alcohol: None
Drug: None
Living: With Family
Employment: Employed
Family History
Family History: Not pertinent
Allergies / Home Medications
Allergies reflects when Allergies were last updated in [employer].
Home Medications with original date entered in [employer]
Allergy/Medication List:
Allergies
Allergy/AdvReac Type Severity Reaction Status Date / Time
cephalexin [From Keflex] Allergy Rash Verified 07/18/24 14:42
latex Allergy Rash Verified 07/18/24 14:42
metronidazole [From Flagyl] Allergy Rash Verified 07/18/24 14:42
oxycodone [From Percocet] Allergy Nausea / Verified 07/18/24 14:42
Vomiting
Sulfa (Sulfonamide Allergy Nausea / Verified 07/18/24 14:42
Antibiotics) Vomiting/RASH
Home Medications
omeprazole 40 mg capsule,delayed release 40 mg PO DAILY gerd 09/24/19
metoprolol succinate 25 mg tablet,extended release 24 hr 25 mg PO DAILY Arrhythmia 09/08/20
loratadine 10 mg tablet 10 mg PO DAILY allergies 11/23/20
atorvastatin 80 mg tablet 80 mg PO HS High cholesterol 01/25/21
multivitamin 1 tab PO DAILY Supplement 02/12/23
sertraline 50 mg tablet 50 mg PO DAILY Mental Health 07/17/23
rimegepant 75 mg disintegrating tablet (Nurtec ODT) 75 mg PO DAILYPRN PRN MIGRANES 07/30/23
lisinopril 20 mg tablet 40 mg PO BID 07/19/24
Review of Systems
-
History Source: Patient
Constitutional: Reports No Symptoms
EENT: Reports No Symptoms
Respiratory: Reports No Symptoms
Cardiac: Reports No Symptoms
Abdomen/GI: Reports Abdominal Pain, Nausea and Vomiting
: Reports No Symptoms
Musculoskeletal: Reports No Symptoms
Skin: Reports No Symptoms
Neurological: Reports No Symptoms
Endocrine: Reports No Symptoms
Hematologic/Lymphatic: Reports No Symptoms
Psych: Reports No Symptoms
Physical Exam
Vital Signs
Vital Signs
Temp Pulse Resp BP Pulse Ox
98.2 F 73 16 159/95 98
07/18/24 14:43 07/18/24 23:22 07/18/24 23:22 07/18/24 23:22 07/18/24 23:22
Physical Exam
General: Well Developed, Well Nourished, No Apparent Distress and Pain
HEENT: NormoCephalic, Anicteric, Moist mucous membranes and Atraumatic
Respiratory: Clear
Cardiac: S1/S2 and Regular Rhythm
GI: Soft, Non Distended, Normal Bowel Sounds and Flat
Rectal: Deferred by Provider
Genito-urinary: No costovertebral tender
Musculoskeletal: No Clubbing, No Cyanosis and No Edema
Skin: Warm
Neuro: AO x 3 and Nonfocal/grossly intact
Hematologic/Lymphatic: No Lymphadenopathy
Psych: Calm
Laboratory Results
-
07/18/24 15:03
07/18/24 15:03
Laboratory Results
Total Bilirubin 0.9 mg/dl (0.2-1.3) 07/18/24 15:03
AST 24 U/L (14-36) 07/18/24 15:03
ALT 15 U/L (0-35) 07/18/24 15:03
Alkaline Phosphatase 123 U/L (38-126) 07/18/24 15:03
Troponin I 0.016 ng/ml 07/18/24 15:04
Lipase 125 U/L (23-300) 07/18/24 15:03
Data Reviewed
-
CT Scan: Report Reviewed by me
Ultrasound: Report Reviewed by me
Medical Tests (Nuc Med, Echo, EKG etc): Image Personally Visualized and interpreted
Lab Data: Labs Reviewed by me
Old Records: Reviewed
Impression/Plan
-
IMPRESSION:
Patient with about 6 days of right upper quadrant discomfort with associated nausea vomiting, no diarrhea, no melena or hematochezia. She is afebrile. Labs are unremarkable. ECG is normal without ischemia or arrhythmia. Troponin is negative.
She has no urinary symptoms. Imaging shows no acute abnormalities. Patient has been unable to tolerate p.o. for about 4 days stating that she has had minimal p.o. intake and inability to take her meds due to the nausea. No prior history of bowel
obstruction or impaired gastric emptying. Denies dysphagia.
PLAN:
1. Abdominal Pain -despite presentation, patient has no evidence of gallstones, cholecystitis or pancreatitis. No evidence of appendicitis. No bowel obstruction. No enteritis. She does have nausea and ongoing abdominal pain that is still
consistent with gastritis or duodenitis. She does not appear to have any evidence of an acute GI bleed. Given the location of the pain there could also be occult or PE however she does not endorse any pleuritic symptoms and this will not be
consistent with the nausea and vomiting. No evidence of chest pain or ACS.
- admit to medsurg
- will start iv protonix bid for now
- famotidine iv x 1 as well
- Agressive hydration and antiemetics
- liquid diet for now
- check d-dimer with am labs
- GI consultation for intractable abdominal pain given IBD/IBS history
2. HTN
- restart patients lisinpril and mtoprolol
- continue statin
DVT PPX - lovenox sq
Code status - full code
[2024-07-19] MEDS: PEPCID 20 MG IV (01:07)
[2024-07-19] MEDS: PROTONIX IV 40 MG IV ×3 (01:07→20:35)
[2024-07-19] MEDS: TYLENOL 650 MG PO (01:10)
[2024-07-19] MEDS: NSS (PRESERVATIVE FREE) 8 ML IV (01:10)
[2024-07-19] MEDS: NSS (PRESERVATIVE FREE) 10 ML IV ×3 (01:10→20:35)
[2024-07-19] MEDS: MAALOX 30 ML PO (01:10)
[2024-07-19 01:14] VITALS: BP 151/101
[2024-07-19] MEDS: ZOFRAN 4 MG IV (02:11)
[2024-07-19] MEDS: LR 1000 IV ×3 (02:11→20:46)
[2024-07-19 06:33] LABS: Hematocrit 35.1 % (37.0-47.0); Mean Corp Hgb Conc. 34.2 g/dL (33.0-37.0); Mean Corpuscular Hgb 32.8 pg (27.0-31.0); Mean Corpuscular Volume 95.9 fL (81.0-99.0); Mean Platelet Volume 10.3 fL (7.4-10.4); Platelet Count 147 10^3/uL (130-400); Red Blood Cell Count 3.66 10^6/uL (4.20-5.40); Red Cell Dist. Width 12.1 % (11.5-14.5); White Blood Cell Count 5.9 10^3/uL (4.8-10.8)
[2024-07-19 06:51] LABS: D-Dimer 1.24 ug/mlFEU (0.00-0.50)
[2024-07-19 06:58] LABS: Blood Urea Nitrogen 22 mg/dl (7-17); Calcium 8.9 mg/dl (8.4-10.2); Carbon Dioxide 20 mmol/L (22-30); Chloride 107 mmol/L (98-107); Estimated Creatinine Clearance 57 ml/min; Glucose 81 mg/dl (70-99); Potassium 3.9 mmol/L (3.5-5.1); Sodium 139 mmol/L (135-145); eGFR > 60.00
[2024-07-19 07:31] VITALS: BP 122/86
[2024-07-19] MEDS: CLARITIN 10 MG PO (08:42)
[2024-07-19] MEDS: TOPROL XL 25 MG PO (08:43)
[2024-07-19] MEDS: ZESTRIL 40 MG PO (08:44)
[2024-07-19] MEDS: LR IV (09:10)
[2024-07-19 10:38] LABS: Urine Albumin Trace (Neg - Trace); Urine Bilirubin Negative (Negative); Urine Character Slightly Cloudy (Clear); Urine Color Yellow; Urine Glucose Negative (Negative); Urine Ketone Trace (Negative); Urine Leukocyte 2+ (Negative); Urine Nitrite Positive (Negative); Urine Occult Blood Trace (Negative); Urine Urobilinogen 1+ (Neg - 1+)
[2024-07-19 10:59] LABS: Urine Mucus Moderate; Urine Squamous Cell 26-30 /LPF (Few)
[2024-07-19 11:00] LABS: Urine Bacteria Many (Negative); Urine White Cell 21-25 /HPF (0-5)
[2024-07-19] MEDS: LEVSIN 0.125 MG PO (12:22)
[2024-07-19] MEDS: MYLICON DROPS 40 MG PO ×3 (12:22→21:55)
[2024-07-19] MEDS: MIRALAX 17 GRAMS PO (12:22)
--- NOTE | 2024-07-19 12:31 | CON.GI ---
Consultation
-
Date/Time Consultation Requested: 07/19/2024 at 0:35
Date/Time Consultation Performed: 07/19/2024 at 1200
Requesting Provider: Dr Pugh
Performing Provider: Dr Zuleta
Reason for Consultation: abdominal pain
Medical History
Chief Complaint / HPI
Chief Complaint: abd pain
History of Present Illness:
Isaura is a 73yo W with h/o CVA, SSS, GERD and IBS-C who presents for diffuse abdominal pain. She on Friday 07/13 had sick contact with coworker with 'stomach flu'. Afterwards she had copious nonbloody diarrhea with nausea/vomiting. The vomiting
resolved and she still with mild nausea with worsening reflux and heartburn. She has been using her omeprazole 40mg every day faithfully however she stopped miralax daily. She was on this previously. There has been no BM in the past 5 days. She
reports gas/bloating and belching. She denies odynophagia, dysphagia, or wt loss. Her abd pain improves with gas passage. She reports currently 7 out of 10 and impedes her ability to eat much. She has dehydration with LH upon standing up.
Denies blood in stools. Recent colonoscopy end of april [address] Carter and EGD in November 2023.
Past Medical History
Past Medical History: Other (CVA, SSS, HTN, pacemaker, IBS, GERD, benign pelvic tumor diverticulosis)
Past Surgical History: Other (Pacemaker 09/2013, BEN/BSO 2018 at [facility], appendectomy, bunion removal, hammertoe surgery basal cell cancer removed, LN bx)
Social History
Tobacco: Non-Smoker
Alcohol: Occasional
Drug: None
Living: With Family
Employment: Employed
Family History
Family History: Other (Father lung cancer, Mother heart disease, no GI cancers)
Allergies / Home Medications
Allergy/AdvReac Type Severity Reaction Status Date / Time
cephalexin [From Keflex] Allergy Rash Verified 07/18/24 14:42
latex Allergy Rash Verified 07/18/24 14:42
metronidazole [From Flagyl] Allergy Rash Verified 07/18/24 14:42
oxycodone [From Percocet] Allergy Nausea / Verified 07/18/24 14:42
Vomiting
Sulfa (Sulfonamide Allergy Nausea / Verified 07/18/24 14:42
Antibiotics) Vomiting/RASH
�Medication �Instructions �Recorded
omeprazole 40 mg capsule,delayed 40 mg PO DAILY gerd 09/24/19
release
metoprolol succinate 25 mg 25 mg PO DAILY Arrhythmia 09/08/20
tablet,extended release 24 hr
loratadine 10 mg tablet 10 mg PO DAILY allergies 11/23/20
atorvastatin 80 mg tablet 80 mg PO HS High cholesterol 01/25/21
multivitamin 1 tab PO DAILY Supplement 02/12/23
sertraline 50 mg tablet 50 mg PO DAILY Mental Health 07/17/23
rimegepant 75 mg disintegrating 75 mg PO DAILYPRN PRN MIGRANES 07/30/23
tablet (Nurtec ODT)
lisinopril 20 mg tablet 40 mg PO BID 07/19/24
Review of Systems
-
All other systems: A 12 pt ROS was Negative except as stated above in HPI
Vital Signs
Temp Pulse Resp BP Pulse Ox
98.7 F 71 17 148/74 99
07/19/24 07:31 07/19/24 08:44 07/19/24 07:31 07/19/24 08:44 07/19/24 07:31
Physical Exam
Exam
GEN: No acute distress, conversant, pleasant
HEENT: anicteric, extraocular movements intact, clear oropharynx without exudates
GI: soft, non-distended, mildly tender to palpation without guarding or rebound, normal active bowel sounds, no hepatosplenomegaly
EXT: warm, well perfused, trace edema bilaterally
NEURO: AAOx3, non-focal
Results
WBC 5.9 10^3/uL (4.8-10.8) 07/19/24 06:04
Hgb 12.0 g/dL (12.0-16.0) 07/19/24 06:04
Hct 35.1 % (37.0-47.0) L 07/19/24 06:04
MCV 95.9 fL (81.0-99.0) 07/19/24 06:04
Plt Count 147 10^3/uL (130-400) 07/19/24 06:04
Absolute Neuts (auto) 4.4 10^3/uL (1.4-6.5) 07/18/24 15:03
Sodium 139 mmol/L (135-145) 07/19/24 06:04
Potassium 3.9 mmol/L (3.5-5.1) 07/19/24 06:04
Chloride 107 mmol/L (98-107) 07/19/24 06:04
Carbon Dioxide 20 mmol/L (22-30) L 07/19/24 06:04
BUN 22 mg/dl (7-17) H 07/19/24 06:04
Creatinine 0.8 mg/dL (0.6-1.0) 07/19/24 06:04
Calcium 8.9 mg/dl (8.4-10.2) 07/19/24 06:04
Total Bilirubin 0.9 mg/dl (0.2-1.3) 07/18/24 15:03
AST 24 U/L (14-36) 07/18/24 15:03
ALT 15 U/L (0-35) 07/18/24 15:03
Alkaline Phosphatase 123 U/L (38-126) 07/18/24 15:03
Lipase 125 U/L (23-300) 07/18/24 15:03
Diagnostic Image Results:
CTAP IV contrast- small fat containing periumbilical hernia. no acute pathology. hepatic steatosis
Abd US hepatic steatosis CBD 8mm unchanged compared to prior
Prior GI Procedures:
11/2023 EGD: Dr Ahmad mild Schatzki ring, erosive gastropathy, gastritis.
03/2024 Colonoscopy: Dr Carter restricted colon with pandiverticulosis, TI normal, hemorrhoids, random bx all normal. recall 7-10 years
Assessment / Plan
-
Isaura is a 73yo W with h/o CVA, SSS, GERD and IBS-C who presents for diffuse abdominal pain after an episode of what clinically sounds to be infectious viral gastroenteritis with similar symptoms from sick coworker exposure on 07/13. Nausea/vomiting
improved but abd pain remains which is consistent with IBS-C post infectious flare up. She had recent colonoscopy 04/2024 and EGD 11/2023. CTAP IV done on this admission without acute pathology
Impression
- Diffuse abdominal pain
CTAP with IV contrast and abd US 07/18 not remarkable
Suspect IBS flare up post viral gastroenteritis (given exposure to coworker with similar issue)
- IBS-C
No BM in the past 5 days
- GERD
- Hepatic steatosis
- Pandiverticulosis
- H/o diverticulitis in past
- CVA
- SSS
- Pacemaker
- Hyperlipdemia
Recommendations
- CTAP reviewed without acute pathology but stool burden. She has not had BM in past 5 days
- Resume miralax daily basis
- Protonix 40mg IV BID
- Levsin SL PRN pain
- Gas-ex QID
- Heating pack to abdomen
- Adv to low residue diet
Given recent EGD 11/2023, colonoscopy 04/2024, Abd US and CTAP IV contrast 07/18/2024 would not recommend any further inpatient GI testing
She can closely follow with Dr Carter upon d/c when her symptoms improve with medical therapies
Above d/w RN bedside. GI will sign off please call for ?
Data Reviewed
-
CT Scan: Report Reviewed by me, Discussed with Nurse and Discussed with Patient
Ultrasound: Report Reviewed by me, Discussed with Nurse and Discussed with Patient
-
-
Thank you for consultation and allowing me to participate in the patient's care. Please call the carbonizer tester GI physician during the after hours with any questions or concerns.
--- NOTE | 2024-07-19 13:38 | W.PN.HOSP.TC ---
Today's Communication/Plan
-
Monitor vital signs see plan
Advance diet and monitor
Start antibiotics
Fluids
Non billable Note
Assessment / Plan
Assessment / Plan
General: Well Developed, Well Nourished, No Apparent Distress and Pain
HEENT: NormoCephalic, Anicteric, Moist mucous membranes and Atraumatic
Respiratory: Clear
Cardiac: S1/S2 and Regular Rhythm
GI: Soft, Non Distended, Normal Bowel Sounds
Musculoskeletal: No Edema
Neuro: AO x 3 and Nonfocal/grossly intact
Psych: Calm
Abdominal pain suspect secondary to gastroenteritis. Patient did had diarrhea last week and later on developed nausea and vomiting.
Currently she is feeling a little better. Will advance diet and monitor
- admit to medsurg
- will start iv protonix bid for now
- famotidine iv x 1 as well
- Aggressive hydration and antiemetics
Denies any chest pain, shortness of breath
GI
UTI
Allergy to Keflex, start Cipro
Follow urine culture
HTN
Continue lisinopril, metoprolol
DVT PPX - lovenox sq
Code status - full code
Anticipated Discharge: Within 24 hours
Subjective/Interval History
-
Date of Service: July 19, 2024
denies nausea
Objective Data
-
Labs:
Laboratory Results
07/19/24
06:04
WBC 5.9
Hgb 12.0
Hct 35.1 L
Plt Count 147
Sodium 139
Potassium 3.9
Chloride 107
Carbon Dioxide 20 L
BUN 22 H
Creatinine 0.8
Glucose 81
Calcium 8.9
Vital Signs:
Vital Signs
Temp Pulse Resp BP Pulse Ox
98.7 F 71 17 148/74 99
07/19/24 07:31 07/19/24 08:44 07/19/24 07:31 07/19/24 08:44 07/19/24 07:31
I&O
07/18/24 07/19/24 07/20/24
06:59 06:59 06:59
Intake Total 560 / 560 470 / 470
Balance 560 / 560 470 / 470
[2024-07-19] MEDS: VISBIOME 1 CAP PO (14:22)
[2024-07-19] MEDS: CIPRO 400 MG 200 IV (14:22)
--- NOTE | 2024-07-19 15:06 | CM ---
Addendum entered by Nicolette Bustamante 07/19/24 15:52:
Of note, pt has no secondary plan or Rx plan
Pays benz for meds
Original Note:
CM met with pt bedside
Pt resides with her herb/Cristofer who is employed as a PT
They reside at [address] [place] [address]
2SH with 1 WILFRID, full flight
Independent with no DMEs
No financial insecurities
Hx with VN and acute rehab, providers unknown
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
PCP- Jorge Cowan
Rx- [facility]
Pt notes SO is her primary contact and son backup
No POAs
WELSH verbally reviewed- copy placed on ED chart
Copy provided to pt
Discharge Disposition- anticipate home no needs
[2024-07-19 15:23] VITALS: BP 152/68
--- NOTE | 2024-07-19 16:26 | VATNOTE ---
Called by ED director of medical staff services, pt. has grossly infiltrated right hand and forearm infiltrate from LR and Cipro. IV d'cd, elevated on pillows and warm compress applied. +radial pulse 1-2sec, +cap refill 1-2 sec. Will continue to monitor.
[2024-07-19 18:06] VITALS: BP 140/84
[2024-07-19] MEDS: LOVENOX 40 MG SC (18:07)
[2024-07-19 20:41] VITALS: BP 114/66
[2024-07-19 21:51] VITALS: BP 120/68
[2024-07-19] MEDS: ZESTRIL PO (21:53)
[2024-07-19] MEDS: LIPITOR 80 MG PO (21:54)
[2024-07-20] MEDS: CIPRO 400 MG 200 IV (02:16)
[2024-07-20 03:16] VITALS: BP 129/72
[2024-07-20] MEDS: LR 1000 IV (05:04)
[2024-07-20 05:41] LABS: Blood Urea Nitrogen 12 mg/dl (7-17); Calcium 8.7 mg/dl (8.4-10.2); Carbon Dioxide 27 mmol/L (22-30); Chloride 107 mmol/L (98-107); Estimated Creatinine Clearance 50 ml/min; Glucose 90 mg/dl (70-99); Potassium 3.9 mmol/L (3.5-5.1); Sodium 142 mmol/L (135-145); eGFR > 60.00
[2024-07-20 05:45] LABS: % Basophils 0.8 % (0-2); % Eosinophils 4.1 % (0-6); % Immature Granulocytes 0.4 % (0-0.5); % Monocytes 9.2 % (1.7-9.3); % Neutrophils 38.5 % (42.2-75.2); Absolute Eosinophils 0.2 10^3/uL (0-0.7); Absolute Lymphocytes 2.4 10^3/uL (1.2-3.4); Absolute Monocytes 0.5 10^3/uL (0.1-0.6); Hematocrit 34.7 % (37.0-47.0); Hemoglobin 11.5 g/dL (12.0-16.0); Mean Corp Hgb Conc. 33.1 g/dL (33.0-37.0); Mean Corpuscular Hgb 32.1 pg (27.0-31.0); Mean Corpuscular Volume 96.9 fL (81.0-99.0); Nucleated Red Blood Cells % 0 %; Red Blood Cell Count 3.58 10^6/uL (4.20-5.40); Red Cell Dist. Width 12.1 % (11.5-14.5); White Blood Cell Count 5.1 10^3/uL (4.8-10.8)
[2024-07-20 06:10] LABS: Mean Platelet Volume 10.3 fL (7.4-10.4); Platelet Count 142 10^3/uL (130-400)
[2024-07-20] MEDS: MIRALAX PO (07:11)
[2024-07-20] MEDS: CLARITIN 10 MG PO (09:08)
[2024-07-20] MEDS: VISBIOME 1 CAP PO (09:12)
[2024-07-20] MEDS: TOPROL XL 25 MG PO (09:12)
[2024-07-20] MEDS: PROTONIX IV 40 MG IV (09:12)
[2024-07-20] MEDS: NSS (PRESERVATIVE FREE) 10 ML IV (09:13)
[2024-07-20] MEDS: ZESTRIL 40 MG PO (09:13)
[2024-07-20] MEDS: MYLICON DROPS 40 MG PO (09:13)
[2024-07-20] MEDS: ZOFRAN 4 MG IV (09:14)
--- NOTE | 2024-07-20 11:09 | W.PN.HOSP.TC ---
Today's Communication/Plan
-
Discharge if tolerating full diet
Assessment / Plan
Assessment / Plan
#Abdominal pain
-Differential diagnoses include gastroenteritis versus gastritis; stool studies negative, C. difficile negative
-Clinically more consistent with gastroenteritis, states she does have history of dark stools in the past
-Has improved clinically on IV PPI, famotidine, antiemetics and hydration
-Plan to DC on PPI, as needed famotidine, follow-up with GI
#UTI
-Urine culture growing gram-negative bacilli, no sensitivities
-Has not had a leukocytosis here; no fevers, did have symptoms
-Was started on ciprofloxacin, will discharge to complete 7-day course
#HTN
Continue lisinopril, metoprolol
DVT PPX - lovenox sq
Diet - Regular
Code status - full code
Anticipated Discharge: Today
Subjective/Interval History
-
Date of Service: July 20, 2024
Seen and examined at the bedside. No acute events reported overnight. AFVSS this morning.
Stated that she had some watery diarrhea after eating yesterday though none today. Was having breakfast with eggs and toast, denied any abdomen pain at the time.
Denies any other acute complaints. States she would like to leave the hospital with possible
Objective Data
-
Labs:
Laboratory Results
07/20/24
05:02
WBC 5.1
Hgb 11.5 L
Hct 34.7 L
Plt Count 142
Sodium 142
Potassium 3.9
Chloride 107
Carbon Dioxide 27
BUN 12
Creatinine 0.9
Glucose 90
Calcium 8.7
Vital Signs:
Vital Signs
Temp Pulse Resp BP Pulse Ox
98.4 F 72 18 154/104 95
07/19/24 21:51 07/20/24 03:16 07/20/24 03:16 07/20/24 09:13 07/20/24 03:16
I&O
07/19/24 07/20/24 07/21/24
06:59 06:59 06:59
Intake Total 560 / 560 670 / 670
Balance 560 / 560 670 / 670
Review of Systems
-
History Source: Patient
All other systems: Reviewed and negative
Physical Exam
-
General: Well Developed, Well Nourished, No Apparent Distress and Comfortable
HEENT: Normocephalic, Atraumatic, Moist Mucous Membranes and Anicteric
Respiratory: Clear to Auscultation and Non Labored Respirations
Cardiac: Regular Rhythm and S1/S2; Negative Murmur, Rub or Gallop
GI: Soft, Nontender, Nondistended and Normal Bowel Sounds
Genito-urinary: Other (No suprapubic tenderness)
Musculoskeletal: No Clubbing, No Cyanosis and No Edema
Skin: Warm and Dry; Negative Rash
Neuro: AO x 3 and Nonfocal/Grossly Intact
Psych: Calm
Data Reviewed
-
Labs: Labs Reviewed by me and Discussed with Patient
[2024-07-20 11:42] VITALS: BP 144/71
[2024-07-20] MEDS: FLUAD (65 yr+) 2024-2025 FORMULA 0.5 ML IM (12:26)
--- NOTE | 2024-07-21 15:20 | W.DCSUMMARY ---
Discharge Summary
Discharge Data
Date of Admission: 07/19/24
Date of Discharge: 07/20/24
-
Pending Results: No
Hospital Course
73-year-old female with hypertension that presented to the hospital with abdomen pain/diarrhea and dysuria. CT scan unremarkable for acute findings. Stool studies negative, C. difficile testing was negative as well. Suspicion high for viral
gastroenteritis as cause of her gastroenterologic symptoms however norovirus testing not available due to high demand. Was treated supportively and improved. Able to tolerate full diet by 07/20/2024.
She did have positive urinalysis in the context of her dysuria. Was started on antibiotics upon admission. Was transition to oral ciprofloxacin to complete 5 days of antibiotics. Encouraged to follow-up with her primary care doctor after discharge
Discharge Plan
-
Patient Disposition: Home (Routine Discharge)
Discharge Diagnosis/Procedures: Viral gastroenteritis
Possible gastritis
IBS-C
Condition: Good
Diet: As tolerated
Activity: As tolerated
Driving Restrictions: No driving for 24 hours
Bathing Restrictions: None
Activity Restrictions/Additional Instructions:
After discharge from the hospital schedule follow-up with your family doctor, should be seen in the office within 2 weeks of discharge
You should also schedule a follow-up appointment with gastroenterology. 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
Instructions: Viral gastroenteritis in adults
Stand Alone Forms: Return to Work
Referrals:
Jorge Cowan PA-C [Family Provider] -
Sabrina Carter DO [Active] - (4-6 wks for IBS-C flare up hepatic steatosis)
Additional Discharge Medication Instructions: Continue ciprofloxacin 500 mg every 12 hours for 5 days after discharge
Continue hyoscyamine as needed for abdomen pain
Continue Zofran as needed for nausea
Continue simethicone nightly
Prescriptions:
New
hyoscyamine sulfate 0.125 mg Tablet, Sublingual
0.125 mg PO Q4HPRN PRN (Reason: abdominal pain) 30 Days Qty: 60 0RF
simethicone [Teeny Tummy Infant Gas Relief] 40 mg/0.6 mL Drops,Suspension
40 mg PO PCHS 30 Days Qty: 72 0RF
Lactobac/Bifidobac [Visbiome]
1 cap PO DAILY 30 Days Qty: 30 0RF
ondansetron 4 mg tablet,disintegrating
4 mg PO Q8H PRN (Reason: nausea and vomiting) 5 Days Qty: 14 0RF
ciprofloxacin HCl 500 mg tablet
500 mg PO Q12H 5 Days Qty: 10 0RF
Continued
omeprazole 40 MG capsule,delayed release(DR/EC)
40 mg PO DAILY
metoprolol succinate 25 MG tablet extended release 24 hr
25 mg PO DAILY
loratadine 10 MG tablet
10 mg PO DAILY
atorvastatin 80 MG tablet
80 mg PO HS
multivitamin Tablet
1 tab PO DAILY
sertraline 50 mg Tablet
50 mg PO DAILY
Nurtec ODT 75 mg Tablet,Disintegrating
75 mg PO DAILYPRN PRN (Reason: MIGRANES)
Patient Comments:
patient has free samples
lisinopril 20 mg tablet
40 mg PO BID
acetaminophen [Tylenol] 325 mg Tablet
650 mg PO Q6HPRN PRN (Reason: mild pain)
polyethylene glycol 3350 [Miralax] 17 gram Powder In Packet
8.5 g PO Q72H
Discharge Orders:
Discharge Patient (As Directed); Ordered 07/20/24
Ordered By: Miguel Angel Becerra
Discharge Date and Time
Discharge Date/Time: 07/20/24 12:46
Print Language: KOREAN
== END 2024-07-20 12:46 | disposition home or self-care (01) ==
LOC: ED 00:32
PROVIDERS: Emergency Medicine; Internal Medicine; Physician Assistant; ADMITTING PHYSICIAN Internal Medicine; ATTENDING PHYSICIAN Internal Medicine; CONSULT PHYSICIAN Internal Medicine Gastroenterology; EMERGENCY PHYSICIAN Emergency Medicine; FAMILY PHYSICIAN Physician Assistant Medical
DX: A08.4 Viral intestinal infection, unspecified (principal); N39.0 Urinary tract infection, site not specified; K58.1 Irritable bowel syndrome with constipation; R11.2 Nausea with vomiting, unspecified; R19.7 Diarrhea, unspecified; R10.11 Right upper quadrant pain; I10 Essential (primary) hypertension; K21.9 Gastro-esophageal reflux disease without esophagitis; E78.00 Pure hypercholesterolemia, unspecified; K76.0 Fatty (change of) liver, not elsewhere classified; K83.8 Other specified diseases of biliary tract; Z95.0 Presence of cardiac pacemaker; Z86.73 Personal history of transient ischemic attack (TIA), and cerebral infarction without residual deficits; Z82.3 Family history of stroke; K29.00 Acute gastritis without bleeding; Z88.1 Allergy status to other antibiotic agents; Z91.040 Latex allergy status; Z88.5 Allergy status to narcotic agent; Z88.2 Allergy status to sulfonamides; Z90.722 Acquired absence of ovaries, bilateral; Z90.710 Acquired absence of both cervix and uterus; Z90.49 Acquired absence of other specified parts of digestive tract; Z85.828 Personal history of other malignant neoplasm of skin; Z80.1 Family history of malignant neoplasm of trachea, bronchus and lung; Z82.49 Family history of ischemic heart disease and other diseases of the circulatory system; Z23 Encounter for immunization
CPT/HCPCS: 74177; 76705; 80048; 80053; 81003; 81015; 83690; 84484; 85025; 85027; 85379; 87077; 87086; 87186; 93005; 96361; 96374; 96375; 99285; G0378; Q9967

== ENCOUNTER → 2024-12-01 14:34 | Outpatient (REF) | payer MEDICARE, SELFPAY ==
[2024-12-01 15:28] LABS: % Basophils 0.4 % (0-2); % Eosinophils 0.9 % (0-6); % Immature Granulocytes 0.8 % (0-0.5); % Lymphocytes 30.6 % (20.5-51.1); % Monocytes 7.3 % (1.7-9.3); Absolute Eosinophils 0.1 10^3/uL (0-0.7); Absolute Immature Granulocytes 0.1 10^3/uL (0-0.05); Absolute Lymphocytes 2.3 10^3/uL (1.2-3.4); Absolute Monocytes 0.5 10^3/uL (0.1-0.6); Absolute Neutrophils 4.5 10^3/uL (1.4-6.5); Hematocrit 36.4 % (37.0-47.0); Hemoglobin 12.1 g/dL (12.0-16.0); Mean Corp Hgb Conc. 33.2 g/dL (33.0-37.0); Mean Corpuscular Hgb 32.9 pg (27.0-31.0); Mean Corpuscular Volume 98.9 fL (81.0-99.0); Mean Platelet Volume 10.1 fL (7.4-10.4); Nucleated Red Blood Cells % 0 %; Platelet Count 194 10^3/uL (130-400); Red Blood Cell Count 3.68 10^6/uL (4.20-5.40); White Blood Cell Count 7.4 10^3/uL (4.8-10.8)
[2024-12-01 15:34] LABS: PT 12.6 Sec (11.4-14.6)
[2024-12-01 15:39] LABS: Blood Urea Nitrogen 22 mg/dl (7-17); Calcium 9.1 mg/dl (8.4-10.2); Carbon Dioxide 27 mmol/L (22-30); Chloride 107 mmol/L (98-107); Glucose 81 mg/dl (70-99); Sodium 139 mmol/L (135-145); eGFR > 60.00
[2024-12-02 08:52] LABS: Glycohemoglobin (HgbA1c) 5.4 % (4.0-5.6)
== END ==
LOC: REG 14:34
PROVIDERS: ATTENDING PHYSICIAN Orthopaedic Surgery Sports Medicine; FAMILY PHYSICIAN Physician Assistant Medical
DX: M17.11 Unilateral primary osteoarthritis, right knee (principal); Z01.818 Encounter for other preprocedural examination; R73.09 Other abnormal glucose; R79.1 Abnormal coagulation profile
CPT/HCPCS: 36415; 80048; 83036; 85025; 85610; 85730

== ENCOUNTER 2025-03-08 09:39 | Emergency (ER) | payer MEDICARE, SELFPAY ==
[2025-03-08 09:40] VITALS: BP 142/92
--- NOTE | 2025-03-08 10:21 | ED.GENMED ---
History of Present Illness
General
Chief Complaint: Abdominal Symptoms
Source: patient
Exam Limitations: none
Time Seen by Provider: 03/08/25 10:19
Nursing documentation reviewed up to this point in time: agreed with
History of Present Illness
History of Present Illness:
74-year-old female with history of CVA, HTN, pacemaker, colitis, GERD, IBS, hysterectomy, oophorectomy, appendectomy presents with complaints of sudden onset nausea and vomiting and upper abdominal discomfort yesterday. The vomitus is described as
clear with an orange color, similar to bile, and has a sour taste. The last episode of vomiting occurred at 8:35 AM this morning, and she reports an inability to keep anything down, including attempts to drink fluids like adolph trace. She denies
fever or chills and feels discomfort across the upper abdomen. The patient rates her pain at 6 to 7 out of 10. She denies any chest pain or difficulty breathing. She has not identified any specific aggravating or relieving factors. There is no noted
change in stool color, and her last bowel movement was yesterday, reported as normal with no difficulty in urination.
Past History
Past History
ED Past Medical History: Arrthythmia (HB), CVA (2013, 2016, twice in 2017, November 2020), GERD, HTN, Hypercholesterolemia and Other (Ulcerative colitis-no biologics, IBS, Cat scratch fever)
ED Past Surgical History: Appendectomy, Cardiac (pacer for bradycardia=30), Gynecological and Orthopedic
Social History
Tobacco: Non-smoker
Alcohol: Occasional
Drug: None
Personal:
Living: with family
Employment: Not employed
Family History
Family History: Other (stroke in distantly related family members)
Review of Systems
Review of Systems
Allergies reviewed?: Yes
All Other Systems: ROS reviewed and negative except as documented in HPI and ROS
Constitutional: Denies fever
ABD/GI: Reports abdominal pain, nausea and vomiting; Denies diarrhea, bloody stools or black stools
Phy Exam
Physical Exam
Physical Exam:
GENERAL: No acute distress. A&Ox3.
CONSTITUTIONAL: Afebrile.
EYES: clear, conjunctivae normal
ENMT: moist mucus membranes, Pharynx nl
RESPIRATORY: Regular respirations, nonlabored, lungs clear.
CARDIOVASCULAR: Regular rate and rhythm, no murmurs, no rubs.
GI: Soft, nontender, normal BS
MUSCULOSKELETAL: Moves with ease. Well perfused.
SKIN: Warm, dry, pink
PSYCH: Normal mood and affect. Well kept, interactive and appropriate
NEUROLOGIC: Awake, alert and oriented. No focal neurological deficits
Course
Orders/Labs/Results
Orders:
Orders
03/08/25 09:44
EKG [Electrocardiogram (*1)] Urgent
Reason for Study: Fatigue / Weakness
03/08/25 09:45
EKG- Treatment ONCE
03/08/25 10:32
US Abdomen Complete/Upper Urgent
Comment:
Reason For Exam: pain across upper abd, n/v/
03/08/25 10:55
Complete Blood Count/With Diff Urgent
Comprehensive Metabolic Panel Urgent
Lipase Urgent
03/08/25 11:03
Ondansetron Injectable [Zofran] 4 mg IV NOW STA
03/08/25 11:04
0.9% Sodium Chloride 1000 ml [Nss] 1,000 ml IV BOLUS
03/08/25 13:13
Piperacillin/Tazo 4.5 Gram [Zosyn] 4.5 gram in 100 ml IV NOW
Vancomycin [Vancocin] 2,000 mg 0.9% Sodium Chloride 500 ml [Nss] 500 ml IV NOW
03/08/25 13:54
Pantoprazole [Protonix IV] 80 mg IV NOW STA
Abnormal Lab Results
03/08/25
10:55
RBC 4.01 L 10^6/uL
(4.20-5.40)
MCH 32.2 H pg
(27.0-31.0)
Absolute Monos (auto) 0.7 H 10^3/uL
(0.1-0.6)
Glucose 122 H mg/dl
(70-99)
03/08/25 10:55
03/08/25 10:55
Vital Signs
Initial and Last Documented VS:
Initial Vital Signs
Temp Pulse Resp BP Pulse Ox
97.4 F 66 20 142/92 95
03/08/25 09:40 03/08/25 09:40 03/08/25 09:40 03/08/25 09:40 03/08/25 09:40
Last Documented Vital Signs
Temp Pulse Resp BP Pulse Ox
97.7 F 60 18 151/67 100
03/08/25 14:15 03/08/25 14:15 03/08/25 14:15 03/08/25 14:15 03/08/25 14:15
MDM/Problems Addressed
Differential Diagnosis Includes:
Cholecystitis, gastritis, PUD, pancreatitis, gastroenteritis, bowel obstruction, GERD
MDM/Problems Addressed:
74-year-old female with history of CVA, HTN, pacemaker, colitis, GERD, IBS, hysterectomy, oophorectomy, appendectomy presents with complaints of sudden onset nausea and vomiting and upper abdominal discomfort yesterday. The vomitus is described as
clear with an orange color, similar to bile, and has a sour taste. The last episode of vomiting occurred at 8:35 AM this morning, and she reports an inability to keep anything down, including attempts to drink fluids like adolph trace. She denies
fever or chills and feels discomfort across the upper abdomen. The patient rates her pain at 6 to 7 out of 10. She denies any chest pain or difficulty breathing. She has not identified any specific aggravating or relieving factors. There is no noted
change in stool color, and her last bowel movement was yesterday, reported as normal with no difficulty in urination.
Afebrile, NAD
EKG: NSR
CBC normal
CMP normal
Lipase normal
1:10 PM:
Ultrasound radiology report read: IMPRESSION:
No acute hepatobiliary abnormalities.
Small amount of sludge within the gallbladder. No stones or secondary findings for acute cholecystitis.
1:50 PM:
In to reevaluate patient. Patient symptoms are minimal at this time 'just a little discomfort' pointing to the epigastric area. Reevaluation of the abdomen basically benign with some mild tenderness epigastric area
Plan: Protonix, Zofran prescription sent to her pharmacy. She sees Dr. Carter and will follow-up with her.
*Pulse Oximetry
SaO2: 95
Oxygen Mode of Delivery: Room air
Patient hypoxic: no
*EKG
EKG Intrepretation Date: 03/08/25
Interpretation: normal
Heart Rate: 65
Rate: normal
Rhythm: sinus
[place]: normal axis
Interval: normal interval
QRS Pattern: normal QRS
Ischemia: no ischemia
*Critical Care Note
Total Time (30-74mins, 75-104mins- exclusive of procedures): Not Applicable
ED Attending Note
-
Portions of this chart may have been created with voice recognition software.� Occasional wrong word or��sound alike� substitutions may have occurred due to the inherent limitations of voice recognition software.
Discharge Plan
Departure
Patient Disposition: Home (Routine Discharge)
Date of Disposition: 03/08/25
Time of Disposition: 13:55
Patient with high blood pressure during this ER visit?: No
Condition: Good
Discharge Problem:
Acute epigastric pain
Instructions: Cherry Diet, Abdominal Pain
Prescriptions:
New
pantoprazole [Protonix] 40 mg tablet,delayed release (DR/EC)
40 mg PO DAILY Qty: 30 0RF
ondansetron 4 mg tablet,disintegrating
4 mg PO Q8H Qty: 30 0RF
No Action
omeprazole 40 MG capsule,delayed release(DR/EC)
40 mg PO DAILY
metoprolol succinate 25 MG tablet extended release 24 hr
25 mg PO DAILY
loratadine 10 MG tablet
10 mg PO DAILY
atorvastatin 80 MG tablet
80 mg PO HS
multivitamin Tablet
1 tab PO DAILY
sertraline 50 mg Tablet
50 mg PO DAILY
Nurtec ODT 75 mg Tablet,Disintegrating
75 mg PO DAILYPRN PRN (Reason: MIGRANES)
Patient Comments:
patient has free samples
lisinopril 20 mg tablet
40 mg PO BID
acetaminophen [Tylenol] 325 mg Tablet
650 mg PO Q6HPRN PRN (Reason: mild pain)
polyethylene glycol 3350 [Miralax] 17 gram Powder In Packet
8.5 g PO Q72H
hyoscyamine sulfate 0.125 mg Tablet, Sublingual
0.125 mg PO Q4HPRN PRN (Reason: abdominal pain) 30 Days Qty: 60 0RF
simethicone [Teeny Tummy Gas Relief] 40 mg/0.6 mL Drops,Suspension
40 mg PO PCHS 30 Days Qty: 72 0RF
Lactobac/Bifidobac [Visbiome]
1 cap PO DAILY 30 Days Qty: 30 0RF
ondansetron 4 mg tablet,disintegrating
4 mg PO Q8H PRN (Reason: nausea and vomiting) 5 Days Qty: 14 0RF
ciprofloxacin HCl 500 mg tablet
500 mg PO Q12H 5 Days Qty: 10 0RF
Referrals:
Jorge Cowan PA-C [Family Provider, Family Practice]
Sabrina Carter DO [Active, Gastroenterology] - Next open appointment
Activity Restrictions/Additional Instructions:
As we discussed, stop the omeprazole and start the Protonix. I sent a prescription to your pharmacy for Protonix I also sent a prescription to your pharmacy for Zofran to use as needed for nausea.
Call the GI doctors office today and make next available appointment.
Interventions
Interventions:
*Risk Screen - Suicide Last Done: 03/08/25 09:40
*General Assessment Last Done: 03/08/25 10:50
*Neglect/Abuse Screening Last Done: 03/08/25 09:40
*ED- Fall Risk Assessment Last Done: 03/08/25 10:50
*ED COVID-19 Vaccine History Last Done: 03/08/25 10:50
*Nursing Disposition Last Done: 03/08/25 15:05
CL-Adxyrt-Jqigsbbcbg Assessment Last Done: 03/08/25 10:50
Discharge Date and Time
Discharge Date/Time: 03/08/25 15:05
Print Language: ESTONIAN
[2025-03-08 10:48] VITALS: BMI 28.5
[2025-03-08 11:04] LABS: Hematocrit 39.0 % (37.0-47.0); Hemoglobin 12.9 g/dL (12.0-16.0); Mean Corp Hgb Conc. 33.1 g/dL (33.0-37.0); Mean Corpuscular Volume 97.3 fL (81.0-99.0); Nucleated Red Blood Cells % 0 %; Platelet Count 173 10^3/uL (130-400); Red Cell Dist. Width 12.3 % (11.5-14.5)
[2025-03-08] MEDS: ZOFRAN 4 MG IV (11:23)
[2025-03-08] MEDS: NSS 1000 IV (11:23)
[2025-03-08 11:35] LABS: ALT (SGPT) 18 U/L (0-35); AST (SGOT) 26 U/L (14-36); Albumin 4.6 g/dl (3.5-5.0); Alkaline Phosphatase 97 U/L (38-126); Blood Urea Nitrogen 17 mg/dl (7-17); Calcium 9.6 mg/dl (8.4-10.2); Carbon Dioxide 23 mmol/L (22-30); Chloride 106 mmol/L (98-107); Estimated Creatinine Clearance 66 ml/min; Glucose 122 mg/dl (70-99); Lipase 114 U/L (23-300); Potassium 3.7 mmol/L (3.5-5.1); Sodium 139 mmol/L (135-145); Total Protein 7.1 g/dl (6.3-8.2); eGFR > 60.00
[2025-03-08 14:15] VITALS: BP 151/67
[2025-03-08] MEDS: PROTONIX IV 80 MG IV (14:44)
== END 2025-03-08 15:05 | disposition home or self-care (01) ==
LOC: EMR 09:39
PROVIDERS: Registered Nurse; EMERGENCY PHYSICIAN Emergency Medicine; FAMILY PHYSICIAN Physician Assistant Medical
DX: R10.13 Epigastric pain (principal); K82.8 Other specified diseases of gallbladder; I10 Essential (primary) hypertension; E78.00 Pure hypercholesterolemia, unspecified; K21.9 Gastro-esophageal reflux disease without esophagitis; K51.90 Ulcerative colitis, unspecified, without complications; Z86.73 Personal history of transient ischemic attack (TIA), and cerebral infarction without residual deficits; Z95.0 Presence of cardiac pacemaker; Z82.3 Family history of stroke
CPT/HCPCS: 99284; 96374; 96375 ×2; 96361; 76700; 80053; 83690; 85025; 93005

== ENCOUNTER 2025-04-28 15:17 | Emergency (ER) | payer MEDICARE, SELFPAY ==
[2025-04-28 15:20] VITALS: BP 124/69
[2025-04-28 15:52] LABS: Hematocrit 38.9 % (37.0-47.0); Hemoglobin 12.6 g/dL (12.0-16.0); Mean Corp Hgb Conc. 32.4 g/dL (33.0-37.0); Mean Corpuscular Volume 97.3 fL (81.0-99.0); Nucleated Red Blood Cells % 0 %; Platelet Count 194 10^3/uL (130-400); Red Cell Dist. Width 12.2 % (11.5-14.5)
[2025-04-28 16:01] LABS: ALT (SGPT) 14 U/L (0-35); AST (SGOT) 20 U/L (14-36); Albumin 4.6 g/dl (3.5-5.0); Alkaline Phosphatase 113 U/L (38-126); Blood Urea Nitrogen 23 mg/dl (7-17); Calcium 10.0 mg/dl (8.4-10.2); Carbon Dioxide 24 mmol/L (22-30); Chloride 106 mmol/L (98-107); Glucose 114 mg/dl (70-99); Lipase 125 U/L (23-300); Potassium 3.8 mmol/L (3.5-5.1); Sodium 140 mmol/L (135-145); Total Protein 7.1 g/dl (6.3-8.2); eGFR 59.49
--- NOTE | 2025-04-28 16:38 | ED.GENMED ---
History of Present Illness
General
Chief Complaint: Abdominal Pain
Source: patient
Exam Limitations: none
Time Seen by Provider: 04/28/25 16:06
Nursing documentation reviewed up to this point in time: agreed with
History of Present Illness
History of Present Illness:
Patient is a 74-year-old female with history of hypertension, bradycardia with pacemaker who presents to the emergency department for evaluation of back pain and nausea. She states she woke up this morning with a constant pain in her mid back as
well as nausea. She describes it as a tightness and states it is not sharp or tearing in quality. She has not had any fever or vomiting. She does not have any chest pain or worsening shortness of breath. She denies any diarrhea or constipation.
Patient states she was in the hospital with upper abdominal pain and nausea about 1-2 months ago and was found to have gallbladder sludge. She is scheduled to see a general surgeon next week for consultation for a potential cholecystectomy.
She has not had any recent trauma or inciting injuries/heavy lifting.
Past History
Past History
ED Past Medical History: Arrthythmia (HB), CVA (2013, 2017, twice in 2017, November 2020), GERD, HTN, Hypercholesterolemia and Other (Ulcerative colitis-no biologics, IBS, Cat scratch fever)
ED Past Surgical History: Appendectomy, Cardiac (pacer for bradycardia=30), Gynecological and Orthopedic
Social History
Tobacco: Non-smoker
Alcohol: Occasional
Drug: None
Personal:
Living: with family
Employment: Not employed
Family History
Family History: Other (stroke in distantly related family members)
Review of Systems
Review of Systems
Allergies reviewed?: Yes
All Other Systems: ROS reviewed and negative except as documented in HPI and ROS
Phy Exam
Physical Exam
Physical Exam:
Vitals: Patient's vital signs are stable. Afebrile
General: Patient is well appearing, no acute distress. Nontoxic appearing
Skin: Warm and dry, no rashes or lesions
Head: Normocephalic, atraumatic
Eyes: Sclera nonicteric. EOMs intact. No nystagmus.
Throat: Protecting airway
Neck: Normal ROM, no cervical spine tenderness, no meningismus
Cardiac: Regular rate and rhythm, no murmurs. 2+ palpable radial pulses bilaterally
Pulm: Normal respiratory effort, no wheezes, rales, rhonchi heard on exam
Abdomen: Abdomen soft. Mild tenderness in right upper quadrant without rebound tenderness or guarding. No CVA tenderness
Back: No reproducible midline spinal tenderness. No erythema or rash.
Extremities: No evidence of cyanosis or edema.
Neuro: AAOx3. Grossly intact.
Psychiatric: Normal affect.
Course
Orders/Labs/Results
Orders:
Orders
04/28/25 15:33
Complete Blood Count/With Diff Urgent
Comprehensive Metabolic Panel Urgent
Lipase Urgent
04/28/25 16:23
Electrocardiogram (*1) Urgent
Reason for Study: Abdominal Pain
EKG- Treatment ONCE
0.9% Sodium Chloride 1000 ml [Nss] 1,000 ml IV BOLUS
Ketorolac [Toradol] 15 mg IV NOW STA
US Abdomen Complete/Upper Urgent
Comment:
Reason For Exam: RUQ pain/ mid back pain
04/28/25 16:24
CR Chest - 2 Views Urgent
Comment:
Reason For Exam: mid back pain
04/28/25 17:33
Troponin I Urgent
04/28/25 17:50
Interrogate Pacemaker- Treatment ONCE
04/28/25 18:38
CT Abd/pelvis W Iv Cont Urgent
Comment: per general surgery
Reason For Exam: RUQ pain, nausea, sludge on US
Abnormal Lab Results
04/28/25
15:33
RBC 4.00 L 10^6/uL
(4.20-5.40)
MCH 31.5 H pg
(27.0-31.0)
MCHC 32.4 L g/dL
(33.0-37.0)
MPV 10.5 H fL
(7.4-10.4)
BUN 23 H mg/dl
(7-17)
Glucose 114 H mg/dl
(70-99)
04/28/25 15:33
04/28/25 15:33
Vital Signs
Initial and Last Documented VS:
Initial Vital Signs
Temp Pulse Resp BP Pulse Ox
97.5 F 68 20 124/69 98
04/28/25 15:20 04/28/25 15:20 04/28/25 15:20 04/28/25 15:20 04/28/25 15:20
Last Documented Vital Signs
Temp Pulse Resp BP Pulse Ox
97.5 F 68 18 130/71 98
04/28/25 15:20 04/28/25 15:20 04/28/25 18:00 04/28/25 20:37 04/28/25 16:47
MDM/Problems Addressed
Differential Diagnosis Includes:
Not limited to: Muscle strain/spasm, biliary colic, acute cholecystitis, choledocholithiasis, pneumonia, less likely ACS
MDM/Problems Addressed:
74-year-old female presents with upper abdominal and back pain that began earlier today. She is nauseated but has had no vomiting. She denies chest pain, shortness of breath, or fever. She has a known history of gallbladder sludge and has
experienced similar symptoms in the past. She is scheduled for outpatient general surgery follow-up next week.
On arrival, vital signs were stable. Laboratory studies were unremarkable, showing no leukocytosis and normal liver function tests. An EKG revealed no acute ischemic changes, and troponin was undetectable, making a cardiac cause unlikely. Abdominal
ultrasound demonstrated trace gallbladder sludge but no evidence of acute cholecystitis or other abnormalities.
Her symptoms improved following administration of Toradol. She no longer has back pain, though mild tenderness remains on palpation of the right upper quadrant. Despite the unimpressive objective findings on labs and ultrasound, I suspect her
symptoms are related to gallbladder disease. CXR fine w/ no widened mediastinum. No shortness of breath.
The case was discussed with general surgery, Dr. Stern, who recommended obtaining a CT scan of the abdomen and pelvis to evaluate for any surrounding inflammatory changes in the right upper quadrant. The CT scan showed no acute abnormalities.
After re-discussion with general surgery, outpatient follow-up was deemed appropriate given the patient�s stability and the negative workup.
The patient remains well appearing and in no distress. Her symptoms have improved. Do not suspect acute cardiac/ pulmonary emergency. She is comfortable with the plan and understands strict return precautions which were reviewed in detail.
Chronic conditions affecting care:
Hypertension
Acute Exacerbation and/or Progression of Chronic Illness:
N/A
*Pulse Oximetry
SaO2: 98
Oxygen Mode of Delivery: Room air
Patient hypoxic: no
*EKG
Interpreted by ED Provider?: Yes
EKG Intrepretation Date: 04/28/25
Interpretation: abnormal
Comparison EKG: changes noted
Rate: normal
Rhythm: other (atrial paced)
[place]: normal axis
Interval: normal QT interval
QRS Pattern: normal QRS
Ischemia: non-specific ST changes
*Inbound Sales Consultant Interpretation
Rate: Inbound Sales Consultant- N/A
*Critical Care Note
Total Time (30-74mins, 75-104mins- exclusive of procedures): Not Applicable
Patient Management
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
ED Attending Note
-
Portions of this chart may have been created with voice recognition software.� Occasional wrong word or��sound alike� substitutions may have occurred due to the inherent limitations of voice recognition software.
Discharge Plan
Departure
Patient Disposition: Home (Routine Discharge)
Date of Disposition: 04/28/25
Time of Disposition: 20:28
Patient with high blood pressure during this ER visit?: No
Condition: Good
Discharge Problem:
Abdominal pain
Instructions: Abdominal Pain
Prescriptions:
No Action
omeprazole 40 MG capsule,delayed release(DR/EC)
40 mg PO DAILY
metoprolol succinate 25 MG tablet extended release 24 hr
25 mg PO DAILY
loratadine 10 MG tablet
10 mg PO DAILY
atorvastatin 80 MG tablet
80 mg PO HS
multivitamin Tablet
1 tab PO DAILY
sertraline 50 mg Tablet
50 mg PO DAILY
Nurtec ODT 75 mg Tablet,Disintegrating
75 mg PO DAILYPRN PRN (Reason: MIGRANES)
Patient Comments:
patient has free samples
lisinopril 20 mg tablet
40 mg PO BID
acetaminophen [Tylenol] 325 mg Tablet
650 mg PO Q6HPRN PRN (Reason: mild pain)
polyethylene glycol 3350 [Miralax] 17 gram Powder In Packet
8.5 g PO Q72H
hyoscyamine sulfate 0.125 mg Tablet, Sublingual
0.125 mg PO Q4HPRN PRN (Reason: abdominal pain) 30 Days Qty: 60 0RF
simethicone [Teeny Tummy Gas Relief] 40 mg/0.6 mL Drops,Suspension
40 mg PO PCHS 30 Days Qty: 72 0RF
Lactobac/Bifidobac [Visbiome]
1 cap PO DAILY 30 Days Qty: 30 0RF
ondansetron 4 mg tablet,disintegrating
4 mg PO Q8H PRN (Reason: nausea and vomiting) 5 Days Qty: 14 0RF
ciprofloxacin HCl 500 mg tablet
500 mg PO Q12H 5 Days Qty: 10 0RF
pantoprazole [Protonix] 40 mg tablet,delayed release (DR/EC)
40 mg PO DAILY Qty: 30 0RF
ondansetron 4 mg tablet,disintegrating
4 mg PO Q8H Qty: 30 0RF
Referrals:
Jorge Cowan PA-C [Family Provider, Family Practice] - Follow up in 5-7 days
Eddie Stern MD [Active, Surgical] - Keep scheduled appt
Activity Restrictions/Additional Instructions:
RETURN TO THE EMERGENCY DEPARTMENT WITH ANY FEVER, CHILLS, WORSENING ABDOMINAL/BACK DISCOMFORT, CHEST PAIN OR SHORTNESS OF BREATH, INTRACTABLE VOMITING, WORSENING IN CURRENT SYMPTOMS, OR ANY OTHER CONCERNS
- As discussed - your abdominal ultrasound showed a trace amount of gallbladder sludge. Otherwise your lab work, chest x-ray, CT scan of your abdomen showed no acute findings.
- Your symptoms may be related to your gallbladder. Please continue to follow a low-fat diet and stay well-hydrated. Keep your appointment as scheduled with Dr. Stern on 05/05.
- You should also follow-up with your primary care provider and GI doctor.
Monitor your symptoms very closely and return to the emergency department with any acute worsening/new symptoms or any other symptoms concerning to you
Interventions
Interventions:
*Risk Screen - Suicide Last Done: 04/28/25 20:38
*General Assessment Last Done: 04/28/25 15:20
*Neglect/Abuse Screening Last Done: 04/28/25 20:38
*ED- Fall Risk Assessment Last Done: 04/28/25 20:38
*ED COVID-19 Vaccine History Last Done: 04/28/25 20:38
*ED Influenza Vaccine History Last Done: 04/28/25 20:38
*Nursing Disposition Last Done: 04/28/25 20:38
PY-Vydykk-Czmnhhwhap Assessment Last Done: 04/28/25 17:30
Discharge Date and Time
Discharge Date/Time: 04/28/25 20:39
Print Language: PRYDEINIG
[2025-04-28] MEDS: TORADOL 15 MG IV (16:45)
[2025-04-28] MEDS: NSS 1000 IV (16:46)
[2025-04-28 18:05] LABS: Troponin I < 0.012 ng/ml
[2025-04-28 20:37] VITALS: BP 130/71
== END 2025-04-28 20:39 | disposition home or self-care (01) ==
LOC: EMR 15:17
PROVIDERS: Student in an Organized Health Care Education/Training Program; EMERGENCY PHYSICIAN Emergency Medicine; FAMILY PHYSICIAN Physician Assistant Medical
DX: R10.11 Right upper quadrant pain (principal); K82.8 Other specified diseases of gallbladder; I10 Essential (primary) hypertension; E78.00 Pure hypercholesterolemia, unspecified; K21.9 Gastro-esophageal reflux disease without esophagitis; K51.90 Ulcerative colitis, unspecified, without complications; Z95.0 Presence of cardiac pacemaker; Z86.73 Personal history of transient ischemic attack (TIA), and cerebral infarction without residual deficits; Z82.3 Family history of stroke
CPT/HCPCS: 99284; 96374; 96361 ×3; 93288; 71046; 74177; 76700; 80053; 83690; 84484; 85025; 93005; Q9967

== ENCOUNTER 2025-05-07 06:08 | Day surgery (SDC) | payer MEDICARE, SELFPAY ==
[2025-05-07] VITALS (19 sets, daily range): BP systolic 94–158; BP diastolic 50–94; BMI 27.5
--- NOTE | 2025-05-07 07:04 | W.SUR.PREOP ---
Pre-Operative Surgical Note
-
I have examined this patient prior to the performance of the scheduled procedure.
The patient's condition is unchanged from the time of the current History and
Physical and the patient is able to undergo the scheduled procedure.
[2025-05-07] MEDS: TYLENOL 1000 MG PO (07:13)
[2025-05-07] MEDS: EMEND 40 MG PO (07:23)
[2025-05-07] MEDS: NORMOSOL-R/PLASMALYTE-A 1000 IV (07:25)
--- NOTE | 2025-05-07 08:54 | W.IMMPOSTOP ---
Addendum entered and electronically signed by Eddie Stern MD 05/07/25 09:33:
#[id number]
Original Note:
Surgical Immed Post Op Note
-
Primary Surgeon: Eddie Stern MD
Assisting Surgeon: Abimael Pierre
Pre-op Diagnosis: Chronic cholecystitis
Post-op Diagnosis: Chronic cholecystitis
Procedure Performed: Laparoscopic cholecystectomy with intraoperative cholangiogram
Anesthesia Type: GETA +0.25% Marc[place]
Specimen / Cultures: Gallbladder
Estimated Blood Loss: 12 mL
Complications: None immediate
Operative Findings: Physiologically distended gallbladder with sludge. Intraoperative cholangiogram confirming biliary anatomy, distended biliary tree down to the level of ampulla but no filling defects or abnormalities. Cystic duct and
artery/branches controlled with clip winterizer. Gallbladder extracted at epigastric 12 mm trocar site. No additional incidental findings.
[2025-05-07] MEDS: ZOFRAN 4 MG IV (10:23)
[2025-05-07] MEDS: COMPAZINE 5 MG IV (11:14)
== END 2025-05-07 16:00 | disposition home or self-care (01) ==
LOC: SDS 06:08
PROVIDERS: ATTENDING PHYSICIAN Surgery
DX: K80.10 Calculus of gallbladder with chronic cholecystitis without obstruction (principal)
CPT/HCPCS: 47563; 74300; 76000; 88304; J1335